=== PATIENT | female | born 1950 | race Caucasian/White ===

== ENCOUNTER 2019-08-31 11:43 | Outpatient (CLI) | payer MEDICARE, MEDICAID, SELFPAY ==
--- NOTE | 2019-08-31 12:45 | ECG_ITS ---
Measurements Intervals [place] Rate: 73 P: 20 ME: 166 QRS: 5 QRSD: 100 T: 114 QT: 408 QTc: 452 SINUS RHYTHM WITH SINUS ARRHYTHMIA LEFT VENTRICULAR HYPERTROPHY AND ST-T CHANGE [VOLTAGE CRITERIA PLUS ST/T ABN ABNORMALITY] POSSIBLE old ANTERIOR MYOCARDIAL INFARCTION [30 ms Q WAVE IN V3/V4, OR R < 0.2 mV IN No previous ECG available for comparison Electronically Signed On 08-31-2019 22:19:21 FUEL HANDLER by Abhi Hargrove M.D. [id number]
[2019-08-31 12:46] LABS: Basophils % 0.4 %; Eosinophils # 0.2 10^3/uL (0.0-0.8); Eosinophils % 7.3 %; Hematocrit 36.2 % (37.0-47.0); Hemoglobin 11.8 g/dL (11.5-15.3); Lymphocytes # 0.4 10^3/uL (0.8-4.8); Lymphocytes % 14.3 %; Mean Corpuscular HGB Conc 32.6 g/dL (30.0-36.0); Mean Corpuscular Volume 85.8 fL (81-99); Mean Platelet Volume 10.7 fL (7.4-10.4); Monocytes # 0.3 10^3/uL (0.2-0.9); Neutrophils # 1.8 10^3/uL (1.8-7.7); Neutrophils % 67.6 %; Nucleated Red Blood Cells % 0 %; Platelet Count 82 10^3/cmm (130-400); Red Blood Count 4.22 10^6/uL (4.1-5.3); White Blood Count 2.6 10^3/uL (4.0-10.0)
[2019-08-31 13:10] LABS: Anion Gap 14.6 (5-19); Blood Urea Nitrogen 6 mg/dL (8-23); Calcium 10.3 mg/dL (8.5-10.5); Carbon Dioxide 29 mmol/L (22-29); Chloride 95 mmol/L (98-107); Glucose 342 mg/dL (65-115); Osmolality Calculated 289 mOsm/kg (285-295); Potassium 3.6 mmol/L (3.5-5.1); Sodium 135 mmol/L (136-145)
== END 2019-08-31 11:44 | disposition home or self-care (01) ==
LOC: LAB 12:08
PROVIDERS: Family Provider Internal Medicine; PCP Internal Medicine; Visit Provider Specialist
DX: Z01.810 Encounter for preprocedural cardiovascular examination (principal)
CPT/HCPCS: 36415; 80048; 85025; 93005

== ENCOUNTER 2019-09-29 10:23 | Emergency (ER) | payer MEDICARE, MEDICAID, SELFPAY ==
[2019-09-29 10:24] VITALS: BMI 40.7
--- NOTE | 2019-09-29 10:28 | ED_ITS ---
Entered by Paulo Gray, acting as scribe for HPI - General Adult General: Chief complaint: Epistaxis Stated complaint: EPISTAXIS Time Seen by Provider: 09/29/19 10:26 History of Present Illness: HPI narrative: 69 yo female presents with nosecarole d. Pt states that the nose bleed started at 430 this morning, then stopped. Pt states that it started back up at 830am. Pt states that she has had some vein cauterized in her nose before. When pt arrived EMS did not have a nose clamp on pt. Pt was bleeding into an emesis bag. MD complaint: nose bleed Onset (ago): hour(s) Location: face (nose) Severity: moderate Relieving factors: none Exacerbating factors: none Associated symptoms: Deny chest pain, dyspnea, malaise, nausea, rash or vomiting Treatments prior to arrival: none Review of Systems Const: Denies: fever, chills, body aches, change in appetite, fatigue or malaise ENMT: Reports: nose bleeds Card: Denies: chest pain, edema, shortness of breath on exertion or shortness of breath when lying down Resp: Denies: shortness of breath, productive cough or non-productive cough GI: Denies: abdominal pain, nausea, vomiting, vomiting blood, coffee grounds in vomit, diarrhea, constipation, bloating, blood in stool or black tarry stool : Denies: flank pain, difficulty urinating, painful urination, urinary frequency or urinary urgency Skin/Breast: Denies: rash or itching PFS ED PFSH: Medical History (Updated 09/29/19 @ 13:36 by Sergio Hudson DO) Diabetes mellitus, type II Hemorrhage from nose Surgical History (Updated 09/29/19 @ 10:38 by Paulo Gray) H/O of nasal cauterization Social History Smoking and tobacco status: former smoker Physical Exam Const: COMMON NORMALS: no apparent distress GENERAL APPEARANCE: cooperative and comfortable ORIENTATION/CONSCIOUSNESS: Yes awake, Yes oriented to person, Yes oriented to place and Yes oriented to time HENMT: COMMON NORMALS: normocephalic, head/scalp atraumatic, hearing grossly normal bilaterally, external ears normal, EAC's normal, TM's normal bilaterally, moist oral mucous membranes and oropharynx normal HEAD & SCALP: normocephalic and atraumatic NOSE: epistaxis (severe) EXTERNAL EAR: Yes external ears normal EXTERNAL AUDITORY CANAL: EAC's normal TYMPANIC MEMBRANE: TM's normal bilaterally Eye: COMMON NORMALS: PERRL, EOMs intact bilaterally, conjunctivae normal and no scleral icterus CONJUNCTIVA: Yes conjunctivae normal PUPIL: Yes PERRL Neck/C-Spine: COMMON NORMALS: full ROM, no lymphadenopathy, supple and no JVD Lymph: LYMPHATIC: no lymphadenopathy noted and no lymphedema noted Resp: COMMON NORMALS: normal respiratory effort, no retractions, no use of accessory muscles and clear to auscultation bilaterally AUSCULTATION: clear to auscultation bilaterally Cardio: COMMON NORMALS: no JVD, regular rate, regular rhythm and no murmurs RATE: regular rate RHYTHM: regular rhythm GI: COMMON NORMALS: soft to palpation and no hepatosplenomegaly AUSCULTATION: Yes normoactive bowel sounds PALPATION: Yes soft, No tender, No guarding and Yes no hepatosplenomegaly Extremity: COMMON NORMALS: normal to inspection, normal capillary refill, no clubbing, cyanosis or edema, no calf tenderness and no pedal edema Neuro: SENSORIUM/ORIENTATION: Yes oriented to person, Yes oriented to place and Yes oriented to time Skin: COMMON NORMALS: no rashes or lesions noted GENERAL SKIN EXAM: no rashes or lesions noted Course ED course: Was able to get a hold of Dr. Slade who did the procedure on the [facility]. She recently had a sphenopalatine artery ligation. We placed nose packs was Rhino Rocket's bilaterally even after that patient bled another 4 to 500 mL. She was able to spit most of it out from her mouth. There was little bleeding from the nose around the packs eventually the bleeding did decrease. Discussed with Dr. Slade he recommends transfer to tertiary care center to be evaluated for possible embolization of vessels to the neck nasal cavity by interventional radiology. Discussed with the patient will transfer to [facility] as per Dr. Slade's recommendation. Vital Signs: Vital signs: Vital Signs Temperature 98.6 F 09/29/19 10:32 Pulse Rate 92 09/29/19 13:07 Respiratory Rate 20 H 09/29/19 13:07 Blood Pressure 98/48 09/29/19 13:07 Pulse Oximetry 98 09/29/19 13:07 [facility] - General Adult Lab Data: Labs: Lab Results 09/29/19 09/29/19 Range/Units 10:48 10:48 WBC 5.0 (4.0-10.0) 10^3/ uL RBC 3.54 L (4.1-5.3) 10^6/u L Hgb 9.8 L (11.5-15.3) g/dL Hct 30.8 L (37.0-47.0) % MCV 87.0 (81-99) fL MCH 27.7 L (28.0-34.0) pg MCHC 31.8 (30.0-36.0) g/dL RDW 15.5 H (12.1-15.1) % Plt Count 124 L (130-400) 10^3/c mm MPV 11.8 H (7.4-10.4) fL Neut % (Auto) 74.0 % Lymph % (Auto) 11.3 % [place] % (Auto) 10.1 % Eos % (Auto) 3.8 % Baso % (Auto) 0.6 % Neut # (Auto) 3.7 (1.8-7.7) 10^3/u L Lymph # (Auto) 0.6 L (0.8-4.8) 10^3/u L [place] # (Auto) 0.5 (0.2-0.9) 10^3/u L Eos # (Auto) 0.2 (0.0-0.8) 10^3/u L Baso # (Auto) 0.0 (0.0-0.1) 10^3/u L Nucleated RBC % (a uto) 0 % Nucleated RBCs # 0.0 /100WBC PT 15.00 H (10.5-13.3) SECO NDS INR 1.14 (0.8-1.2) APTT 33.5 (23.9-36.7) SECO NDS Discharge Plan Discharge Patient Disposition: Transfer to ED Clinical Impression: Epistaxis, Acute blood loss anemia Prescriptions: No Action Lantus U-100 Insulin 100 unit/mL Solution See Rx Instructions .ROUTE .COMPLEX RF: 0 aspirin 325 mg Tablet 325 mg PO DAILY RF: 0 simvastatin 10 mg Tablet 10 mg PO DAILY RF: 0 gabapentin 800 mg Tablet 800 mg PO TID RF: 0 ropinirole 0.25 mg Tablet 0.25 mg PO TID RF: 0 Kristalose 10 gram Packet See Rx Instructions .ROUTE .COMPLEX RF: 0 levothyroxine 125 mcg Tablet 125 mcg PO DAILY RF: 0 furosemide 20 mg Tablet 20 mg PO DAILY RF: 0 Vitamin B-6 100 mg Tablet 50 mg PO DAILY RF: 0 Humalog U-100 Insulin 100 unit/mL Solution See Rx Instructions .ROUTE .COMPLEX RF: 0 Multiple Vitamin, Womens Tablet See Rx Instructions .ROUTE .COMPLEX RF: 0 Restasis 0.05 % Dropperette 0.05 % ophthalmic (eye) BID RF: 0 memantine 10 mg Tablet 10 mg PO BID RF: 0 metformin 1,000 mg Tablet Extended Release 24hr 1,000 mg PO DAILY RF: 0 Vitamin D3 25 mcg (1,000 unit) Tablet 25 mcg PO DAILY RF: 0 Fish Oil 300-1,000 mg Capsule 1 cap PO TID RF: 0 alpha lipoic acid 200 mg Tablet 200 mg PO DAILY RF: 0 Xifaxan 550 mg Tablet 550 mg PO BID RF: 0 rivastigmine 13.3 mg/24 hour Patch 24 Hour 1 patch TRANSDERMAL DAILY RF: 0 Probiotic Complex 25 billion cell -100 mg Capsule See Rx Instructions .ROUTE .COMPLEX RF: 0 Trulicity 1.5 mg/0.5 mL Pen Injector See Rx Instructions .ROUTE .COMPLEX RF: 0 duloxetine 30 mg Capsule, Delayed Rel Sprinkle 30 mg PO BID RF: 0 Referrals: Jolie Peck [Primary Care Provider] - Interventions: ED Discharge Assessment Last Done: 09/29/19 13:07 Discharge Date/Time: 09/29/19 13:08 Coding Level of Care Code ED Orthotic Practitioner for Chg Fwd Exam Comprehensive The documentation recorded by the Isaac connelly Kialy, accurately reflects the service I personally performed and the decisions made by Becca quintero Curtis L, DO Sep 29, 2019 10:23
[2019-09-29 10:32] VITALS: BP 126/56; PULSE 93; RESP 22; TEMP 37; O2SAT 94
[2019-09-29] MEDS: LORazepam 2 mg/mL INJ 1 mL 1 MG IVP ×2 (10:50→11:52)
[2019-09-29] MEDS: oxymetazoline 0.05% Nasal Spray 15 mL 2 SPRAY NOSTRIL-B (10:52)
[2019-09-29 10:57] LABS: Basophils % 0.6 %; Eosinophils # 0.2 10^3/uL (0.0-0.8); Eosinophils % 3.8 %; Hematocrit 30.8 % (37.0-47.0); Hemoglobin 9.8 g/dL (11.5-15.3); Lymphocytes # 0.6 10^3/uL (0.8-4.8); Lymphocytes % 11.3 %; Mean Corpuscular HGB Conc 31.8 g/dL (30.0-36.0); Mean Corpuscular Hemoglobin 27.7 pg (28.0-34.0); Mean Platelet Volume 11.8 fL (7.4-10.4); Monocytes # 0.5 10^3/uL (0.2-0.9); Monocytes % 10.1 %; Neutrophils # 3.7 10^3/uL (1.8-7.7); Nucleated Red Blood Cells % 0 %; Platelet Count 124 10^3/cmm (130-400); Red Blood Count 3.54 10^6/uL (4.1-5.3); Red Cell Distribution Width 15.5 % (12.1-15.1)
[2019-09-29 11:02] LABS: INR 1.14 (0.8-1.2)
[2019-09-29 11:03] LABS: Partial Thromboplastin Time 33.5 SECONDS (23.9-36.7)
[2019-09-29] MEDS: ondansetron 2 mg/ML SDV 2 mL 4 MG IVP (11:52)
[2019-09-29] MEDS: fentaNYL 50 mcg/mL INJ 2mL IVP (11:52)
[2019-09-29 13:07] VITALS: BP 98/48; PULSE 92; RESP 20; O2SAT 98
== END 2019-09-29 13:08 ==
LOC: ER 10:34
PROVIDERS: Emergency Provider Family Medicine; Family Provider Internal Medicine; PCP Internal Medicine
DX: R04.0 Epistaxis (principal); D62 Acute posthemorrhagic anemia; E11.9 Type 2 diabetes mellitus without complications; Z87.891 Personal history of nicotine dependence
CPT/HCPCS: 12345; 30903; 36415; 85025; 85610; 85730; 96374; 96375; 96376; 99281; 99285; J2060; J2405; J3010

== ENCOUNTER 2019-11-06 17:31 | Inpatient (IN) | payer MEDICARE, MEDICAID, SELFPAY ==
[2019-11-06] VITALS (9 sets, daily range): BP systolic 105–156; BP diastolic 47–73; PULSE 68–74; RESP 18–24; TEMP 36.3–36.7; O2SAT 95–100; BMI 40.7
--- NOTE | 2019-11-06 17:38 | XR_ITS ---
WS: [id number] PORTABLE CHEST HISTORY: cough COMPARISON: 10/01/2015 Markedly coarsened interstitial marking with opacifications throughout both lungs. New since the prio r study. Marked pulmonary venous congestion. Small bilateral pleural effusions are likely. Cardiac size: Moderately enlarged cardiac silhouette. Heart size has increased since the prior study. Mediastinum/Aorta: Mild widening of the mediastinum is also more prominent. No osseous abnormality seen. XR/XR chest 1V portable [id number] IMPRESSION: Interval development of moderate to severe CHF with increasing cardiac size.
--- NOTE | 2019-11-06 18:14 | PC.NURSE ---
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
[2019-11-06 18:18] LABS: Basophils % 0.6 %; Eosinophils # 0.1 10^3/uL (0.0-0.8); Eosinophils % 4.5 %; Hemoglobin 7.5 g/dL (11.5-15.3); Lymphocytes # 0.4 10^3/uL (0.8-4.8); Mean Corpuscular HGB Conc 28.8 g/dL (30.0-36.0); Mean Corpuscular Hemoglobin 25.6 pg (28.0-34.0); Mean Corpuscular Volume 88.7 fL (81-99); Mean Platelet Volume 10.9 fL (7.4-10.4); Monocytes # 0.3 10^3/uL (0.2-0.9); Monocytes % 10.7 %; Neutrophils # 2.2 10^3/uL (1.8-7.7); Neutrophils % 71.9 %; Nucleated Red Blood Cells % 0 %; Platelet Count 78 10^3/cmm (130-400); Red Blood Count 2.93 10^6/uL (4.1-5.3); Red Cell Distribution Width 18.1 % (12.1-15.1); White Blood Count 3.1 10^3/uL (4.0-10.0)
[2019-11-06 18:38] LABS: Troponin(5th) Baseline 32 ng/mL (0-10)
[2019-11-06] MEDS: sodium chloride 0.9% 1,000 ML 100 ML IV (18:38)
[2019-11-06 18:41] LABS: INR 1.06 (0.8-1.2)
[2019-11-06 18:46] LABS: Alanine Aminotransferase 17 U/L (0-33); Albumin Level 3.4 g/dL (3.5-5.2); Alkaline Phosphatase 79 IU/L (35-105); Anion Gap 14.6 (5-19); Aspartate Amino Transferase 41 U/L (0-32); Blood Urea Nitrogen 11 mg/dL (8-23); Calcium 9.5 mg/dL (8.5-10.5); Carbon Dioxide 28 mmol/L (22-29); Chloride 98 mmol/L (98-107); Globulin 3.5 g/dL (1.3-4.6); Glucose 178 mg/dL (65-115); Lipase 82 U/L (13-60); Magnesium 2.1 mg/dL (1.7-2.3); NT Pro B Type Natriuretic Pept 351 pg/mL (0-125); Osmolality Calculated 284 mOsm/kg (285-295); Potassium 3.6 mmol/L (3.5-5.1); Sodium 137 mmol/L (136-145); Total Bilirubin 1.3 mg/dL (0.15-1.2); Total Protein 6.9 g/dL (6.6-8.7)
--- NOTE | 2019-11-06 18:52 | ED_ITS ---
HPI - Chest Pain General: Chief Complaint: Chest Pain Stated Complaint: CHEST PAIN Time Seen by Provider: 11/06/19 17:37 History of Present Illness: HPI narrative: Ms. Ayala is a nice 69-year-old female who comes in complaining of a prickly chest pain for the past 1 week. The symptoms are intermittent in nature lasting as little as 3 minutes but lasting up to 2 hours. She has associated shortness of breath made worse with exertion. She has questionable diaphoresis. She says she has had increased leg swelling. She denies any other exacerbating or alleviating factors or inciting symptoms. Patient received aspirin and 3 sublingual nitro's by EMS in route and had resolution of her symptoms. The patient is a poor historian further information is taken from old charts and medication lists and family. Review of Systems General: Reports: other (Review of systems are believed to be negative other than as noted in HPI as patient is a poor historian.) [facility] ED PFSH: Medical History (Updated 11/06/19 @ 19:11 by Jessica Velez) Anemia Cirrhosis Dementia Diabetes mellitus, type II Hemorrhage from nose Valvular heart disease Surgical History (Updated 09/29/19 @ 10:38 by Paulo Gray) H/O of nasal cauterization Family History (Updated 11/06/19 @ 21:14 by Bradly Howard MD) Other Diabetes Social History Smoking and tobacco status: former smoker Physical Exam Const: COMMON NORMALS: no apparent distress, oriented x3, no limitations, healthy appearing and well nourished EXAM LIMITATIONS: no altered mental status GENERAL APPEARANCE: cooperative, well kempt and well developed ORIENTATION/CONSCIOUSNESS: Yes awake HENMT: COMMON NORMALS: normocephalic, head/scalp atraumatic, hearing grossly normal bilaterally, external ears normal, EAC's normal, external nose normal and moist oral mucous membranes HEAD & SCALP: normal to inspection, normocephalic and atraumatic FACE & SINUS: normal facial exam and face symmetric NOSE: external nose normal and nares normal EXTERNAL EAR: Yes external ears normal EXTERNAL AUDITORY CANAL: EAC's normal MOUTH: oral and palatal mucosa normal and tongue normal Eye: COMMON NORMALS: PERRL, EOMs intact bilaterally, conjunctivae normal and no scleral icterus GENERAL EYE: normal appearance of both eyes and normal light reflex CONJUNCTIVA: Yes conjunctivae normal SCLERA: sclerae normal CORNEA: Yes corneas normal PUPIL: Yes PERRL DIRECT OPHTHALMOSCOPY: Yes normal light reflex Neck/C-Spine: COMMON NORMALS: full ROM, no lymphadenopathy, supple, no meningeal signs and no JVD GENERAL: Yes normal visual inspection and Yes trachea midline CERVICAL SPINE: Yes cervical ROM normal Chest: COMMONS NORMALS: inspection of chest normal and palpation of chest normal Resp: COMMON NORMALS: normal respiratory effort, no retractions, no use of accessory muscles and clear to auscultation bilaterally EFFORT & INSPECTION: Yes able to speak in complete sentences AUSCULTATION: clear to auscultation bilaterally Cardio: COMMON NORMALS: no JVD, regular rate, regular rhythm, S1 normal heart sound, S2 normal heart sound, no gallops, no clicks and no rub JUGULAR VENOUS DISTENTION: no JVD RATE: regular rate RHYTHM: regular rhythm HEART SOUNDS: S1 normal, S2 normal and murmur systolic GI: COMMON NORMALS: soft to palpation, non-tender, no hepatosplenomegaly and no masses INSPECTION: Yes normal to inspection PALPATION: Yes soft and Yes no hepatosplenomegaly RECTAL EXAM: normal sphincter tone, No heme positive stool and hemorrhoids : COMMON NORMALS: Yes no CVA tenderness BLADDER/KIDNEY EXAM: Yes no CVA tenderness Back/Pelvis: COMMON NORMALS: no CVA tenderness, thoracic and lumbar spine normal to inspection, no thoracic nor lumbar tenderness and thoraco-lumbar ROM normal Extremity: COMMON NORMALS: normal to inspection, full ROM, normal capillary refill, no joint enlargement, no clubbing, cyanosis or edema and no calf tenderness Neuro: COMMON NORMALS: oriented x3, CN's II-XII intact bilaterally, moves all extremities, no focal motor deficits and no sensory deficits noted MENINGEAL SIGNS: Yes no meningeal signs Psych: COMMON NORMALS: mental status grossly normal, thought process normal, cooperative, affect normal, speech normal and activity/motor behavior normal APPEARANCE: Yes well kempt SPEECH: Yes normal speech THOUGHT PROCESS: normal thought process Skin: COMMON NORMALS: no rashes or lesions noted, skin turgor normal, no jaundice, no petechiae and no mottling GENERAL SKIN EXAM: no rashes or lesions noted and turgor normal Course Vital Signs: Vital signs: Vital Signs Temperature 98.1 F 11/06/19 17:39 Pulse Rate 71 11/06/19 21:10 Respiratory Rate 20 H 11/06/19 21:10 Blood Pressure 136/58 11/06/19 21:10 Pulse Oximetry 100 11/06/19 21:10 MDM - Chest Pain MDM Narrative: Medical decision making narrative: Mrs. Thomson is a nice 68- year 1-year-old female who comes in with a confusing past medical history. All records have been ordered to be reviewed from [facility] for hopes of a more complete past medical history. Patient comes in with chest pain that does not sound cardiac in nature. She describes it as prickly . Patient does have shortness of breath with exertion though which is a concerning finding for possible anginal equivalent. Patient has evidence of pulmonary vascular congestion on chest x-ray but no history of congestive heart failure. She states that she does wear nasal cannula oxygen but she is not for certain what for. Patient does have a history of valvular heart disease with a loud murmur but she states this is been present for quite some time. Her EKG has some abnormalities and her troponin is slightly elevated and we have nothing old for comparison. The patient has no active chest pain at this time. Patient is anemic which is a acutely worsening problem. I believe that she will need at least 1 unit of blood. Due to her confusing picture I believe she should be admitted for transfusion and further cardiac evaluation care. The case was endorsed to Dr. Raines who is agreeable to do so. Lab Data: Attestation: I reviewed the patient's lab results. Labs: Lab Results 11/06/19 11/06/19 11/06/19 Range/Units 18:00 18:00 18:00 WBC 3.1 L (4.0-10.0) 10^3/ uL RBC 2.93 L (4.1-5.3) 10^6/u L Hgb 7.5 L (11.5-15.3) g/dL Hct 26.0 L (37.0-47.0) % MCV 88.7 (81-99) fL MCH 25.6 L (28.0-34.0) pg MCHC 28.8 L (30.0-36.0) g/dL RDW 18.1 H (12.1-15.1) % Plt Count 78 L (130-400) 10^3/c mm MPV 10.9 H (7.4-10.4) fL Neut % (Auto) 71.9 % Lymph % (Auto) 12.0 % [place] % (Auto) 10.7 % Eos % (Auto) 4.5 % Baso % (Auto) 0.6 % Reticulocyte % (Au to) % Neut # (Auto) 2.2 (1.8-7.7) 10^3/u L Lymph # (Auto) 0.4 L (0.8-4.8) 10^3/u L [place] # (Auto) 0.3 (0.2-0.9) 10^3/u L Eos # (Auto) 0.1 (0.0-0.8) 10^3/u L Baso # (Auto) 0.0 (0.0-0.1) 10^3/u L Nucleated RBC % (a uto) 0 % Nucleated RBCs # 0.0 /100WBC PT 13.90 H (10.5-13.3) SECO NDS INR 1.06 (0.8-1.2) Sodium 137 (136-145) mmol/L Potassium 3.6 (3.5-5.1) mmol/L Chloride 98 (98-107) mmol/L Carbon Dioxide 28 (22-29) mmol/L Anion Gap 14.6 (5-19) BUN 11 (8-23) mg/dL Creatinine 0.7 (0.5-0.9) mg/dL Glucose 178 H (65-115) mg/dL Calculated Osmolal ity 284 L (285-295) mOsm/k g Calcium 9.5 (8.5-10.5) mg/dL Magnesium 2.1 (1.7-2.3) mg/dL Iron (37-145) ug/dL TIBC mcg/dl % Saturation (20-50) % Unsat Iron Binding (112-347) ug/dL Ferritin (15-150) ng/mL Total Bilirubin 1.3 H (0.15-1.2) mg/dL AST 41 H (0-32) U/L ALT 17 (0-33) U/L Alkaline Phosphata se 79 (35-105) IU/L Ammonia (11-51) umol/L Troponin T Baselin e (0-10) ng/mL Troponin T 120 Min [place] (0-10) ng/mL C-Reactive Protein (0.0-4.9) mg/L NT-Pro-B Natriuret Pep 351 H (0-125) pg/mL Total Protein 6.9 (6.6-8.7) g/dL Albumin 3.4 L (3.5-5.2) g/dL Globulin 3.5 (1.3-4.6) g/dL Lipase 82 H (13-60) U/L Procalcitonin (0-0.5) ng/mL Blood Type Rho(D) Type Antibody Screen Crossmatch 11/06/19 11/06/19 11/06/19 Range/Units 18:00 18:00 18:00 WBC (4.0-10.0) 10^3/ uL RBC (4.1-5.3) 10^6/u L Hgb (11.5-15.3) g/dL Hct (37.0-47.0) % MCV (81-99) fL MCH (28.0-34.0) pg MCHC (30.0-36.0) g/dL RDW (12.1-15.1) % Plt Count (130-400) 10^3/c mm MPV (7.4-10.4) fL Neut % (Auto) % Lymph % (Auto) % [place] % (Auto) % Eos % (Auto) % Baso % (Auto) % Reticulocyte % (Au to) 5.0000 % Neut # (Auto) (1.8-7.7) 10^3/u L Lymph # (Auto) (0.8-4.8) 10^3/u L [place] # (Auto) (0.2-0.9) 10^3/u L Eos # (Auto) (0.0-0.8) 10^3/u L Baso # (Auto) (0.0-0.1) 10^3/u L Nucleated RBC % (a uto) % Nucleated RBCs # /100WBC PT (10.5-13.3) SECO NDS INR (0.8-1.2) Sodium (136-145) mmol/L Potassium (3.5-5.1) mmol/L Chloride (98-107) mmol/L Carbon Dioxide (22-29) mmol/L Anion Gap (5-19) BUN (8-23) mg/dL Creatinine (0.5-0.9) mg/dL Glucose (65-115) mg/dL Calculated Osmolal ity (285-295) mOsm/k g Calcium (8.5-10.5) mg/dL Magnesium (1.7-2.3) mg/dL Iron 58 (37-145) ug/dL TIBC 341 mcg/dl % Saturation 17.0 L (20-50) % Unsat Iron Binding 283 (112-347) ug/dL Ferritin 34 (15-150) ng/mL Total Bilirubin (0.15-1.2) mg/dL AST (0-32) U/L ALT (0-33) U/L Alkaline Phosphata se (35-105) IU/L Ammonia (11-51) umol/L Troponin T Baselin e 32 H (0-10) ng/mL Troponin T 120 Min [place] (0-10) ng/mL C-Reactive Protein 21.4 H (0.0-4.9) mg/L NT-Pro-B Natriuret Pep (0-125) pg/mL Total Protein (6.6-8.7) g/dL Albumin (3.5-5.2) g/dL Globulin (1.3-4.6) g/dL Lipase (13-60) U/L Procalcitonin 0.11 (0-0.5) ng/mL Blood Type Rho(D) Type Antibody Screen Crossmatch 11/06/19 11/06/19 11/06/19 Range/Units 19:40 19:40 20:15 WBC (4.0-10.0) 10^3/ uL RBC (4.1-5.3) 10^6/u L Hgb (11.5-15.3) g/dL Hct (37.0-47.0) % MCV (81-99) fL MCH (28.0-34.0) pg MCHC (30.0-36.0) g/dL RDW (12.1-15.1) % Plt Count (130-400) 10^3/c mm MPV (7.4-10.4) fL Neut % (Auto) % Lymph % (Auto) % Alcorn % (Auto) % Eos % (Auto) % Baso % (Auto) % Reticulocyte % (Au to) % Neut # (Auto) (1.8-7.7) 10^3/u L Lymph # (Auto) (0.8-4.8) 10^3/u L [place] # (Auto) (0.2-0.9) 10^3/u L Eos # (Auto) (0.0-0.8) 10^3/u L Baso # (Auto) (0.0-0.1) 10^3/u L Nucleated RBC % (a uto) % Nucleated RBCs # /100WBC PT (10.5-13.3) SECO NDS INR (0.8-1.2) Sodium (136-145) mmol/L Potassium (3.5-5.1) mmol/L Chloride (98-107) mmol/L Carbon Dioxide (22-29) mmol/L Anion Gap (5-19) BUN (8-23) mg/dL Creatinine (0.5-0.9) mg/dL Glucose (65-115) mg/dL Calculated Osmolal ity (285-295) mOsm/k g Calcium (8.5-10.5) mg/dL Magnesium (1.7-2.3) mg/dL Iron (37-145) ug/dL TIBC mcg/dl % Saturation (20-50) % Unsat Iron Binding (112-347) ug/dL Ferritin (15-150) ng/mL Total Bilirubin (0.15-1.2) mg/dL AST (0-32) U/L ALT (0-33) U/L Alkaline Phosphata se (35-105) IU/L Ammonia 52 H (11-51) umol/L Troponin T Baselin e (0-10) ng/mL Troponin T 120 Min [place] 32.54 H (0-10) ng/mL C-Reactive Protein (0.0-4.9) mg/L NT-Pro-B Natriuret Pep (0-125) pg/mL Total Protein (6.6-8.7) g/dL Albumin (3.5-5.2) g/dL Globulin (1.3-4.6) g/dL Lipase (13-60) U/L Procalcitonin (0-0.5) ng/mL Blood Type AB Negative Rho(D) Type Negaive Antibody Screen Negative Crossmatch See Detail Imaging Data^: CXR: My impression: Mild to moderate pulmonary vascular congestion EKG Data^: EKG 1: Attestation: I personally reviewed and interpreted this EKG as follows: EKG interpretation date: 11/06/19 EKG interpretation time: 17:50 Interpretation: Normal sinus rhythm at 69 beats a minute, T wave inversions in lateral leads, normal intervals, no blocks. Discharge Plan Discharge Patient Disposition: Placed in Observation Clinical Impression: Chest pain, Anemia, Valvular heart disease, Acute CHF (congestive heart failure) Condition: Stable Prescriptions: No Action Lantus U-100 Insulin 100 unit/mL Solution See Rx Instructions .ROUTE .COMPLEX RF: 0 aspirin 325 mg Tablet 325 mg PO DAILY RF: 0 simvastatin 10 mg Tablet 10 mg PO DAILY RF: 0 gabapentin 800 mg Tablet 800 mg PO TID RF: 0 ropinirole 0.25 mg Tablet 0.25 mg PO TID RF: 0 Kristalose 10 gram Packet See Rx Instructions .ROUTE .COMPLEX RF: 0 levothyroxine 125 mcg Tablet 125 mcg PO DAILY RF: 0 furosemide 20 mg Tablet 20 mg PO DAILY RF: 0 Vitamin B-6 100 mg Tablet 50 mg PO DAILY RF: 0 Humalog U-100 Insulin 100 unit/mL Solution See Rx Instructions .ROUTE .COMPLEX RF: 0 Multiple Vitamin, Womens Tablet See Rx Instructions .ROUTE .COMPLEX RF: 0 Restasis 0.05 % Dropperette 0.05 % ophthalmic (eye) BID RF: 0 memantine 10 mg Tablet 10 mg PO BID RF: 0 metformin 1,000 mg Tablet Extended Release 24hr 1,000 mg PO DAILY RF: 0 Vitamin D3 25 mcg (1,000 unit) Tablet 25 mcg PO DAILY RF: 0 Fish Oil 300-1,000 mg Capsule 1 cap PO TID RF: 0 alpha lipoic acid 200 mg Tablet 200 mg PO DAILY RF: 0 Xifaxan 550 mg Tablet 550 mg PO BID RF: 0 rivastigmine 13.3 mg/24 hour Patch 24 Hour 1 patch TRANSDERMAL DAILY RF: 0 Probiotic Complex 25 billion cell -100 mg Capsule See Rx Instructions .ROUTE .COMPLEX RF: 0 Trulicity 1.5 mg/0.5 mL Pen Injector See Rx Instructions .ROUTE .COMPLEX RF: 0 duloxetine 30 mg Capsule, Delayed Rel Sprinkle 30 mg PO BID RF: 0 Referrals: Jolie Peck [Primary Care Provider] - Coding Level of Care Code ED Roll On Man for Chg Fwd Exam Comprehensive
--- NOTE | 2019-11-06 19:39 | ECG_ITS ---
Measurements Intervals [place] Rate: 66 P: 68 IA: 155 QRS: 18 QRSD: 100 T: 135 QT: 429 QTc: 451 SINUS RHYTHM POSSIBLE LEFT ATRIAL ENLARGEMENT [-0.1mV P WAVE IN V1/V2] ST DEVIATION AND MODERATE T-WAVE ABNORMALITY, CONSIDER LATERAL ISCHEMIA [-0.1+ mV T WAVE IN I/aVL/V5/V6] Compared to ECG 11/06/2019 17:50:07 No significant changes Electronically Signed On 11-07-2019 19:08:14 CDT by Abhi Hargrove M.D. [email or web address]
[2019-11-06 19:58] LABS: Troponin 5 2HR 32.54 ng/mL (0-10); Troponin 5 2HR Delta 0.54 ABS# (0-10)
[2019-11-06 20:33] LABS: Procalcitonin 0.11 ng/mL (0-0.5)
--- NOTE | 2019-11-06 20:40 | CTR_ITS ---
PROCEDURE INFORMATION: Exam: CT Angiography Chest With Contrast Exam date and time: 11/06/2019 8:43 PM Age: 69 years old Clinical indication: Shortness of breath; Additional info: SOB TECHNIQUE: Imaging protocol: Computed tomographic angiography of the chest with intravenous contrast. 3D rendering: MIP and/or 3D reconstructed images were created by the technologist. Total DLP: 648.41 mGy-cm Radiation optimization: All CT scans at this facility use at least one of these dose optimization techniques: automated exposure control; mA and/or kV adjustment per patient size (includes targeted exams where dose is matched to clinical indication); or iterative reconstruction. Contrast material: OMNI 350; Contrast volume: 95 ml; Contrast route: 20G; COMPARISON: CR XR chest 1V portable [id number] 11/06/2019 5:43 PM FINDINGS: Pulmonary arteries: Normal. No pulmonary emboli. Aorta: Aortic calcifications are noted. No findings of aortic aneurysm or acute aortic abnormality. Lungs: Pulmonary interstitial thickening relating to edema or congestion. Mild atelectasis also noted.Calcified pulmonary granulomatous change noted. Pleural space: Small bilateral pleural effusions. Heart: Mild cardiomegaly.Coronary calcifications are noted. Liver: Probable cirrhosis with associated splenomegaly. Lymph nodes: Mild prominence of mediastinal lymph nodes. Bones/joints: Nonspecific low-density finding at lower T12 vertebral body will be correlated to MRI from [address] from 2017 when available. Soft tissues: Unremarkable. CT/CT angio chest PE protcl [id number] IMPRESSION: Congestive heart failure. No findings of pulmonary embolus. Nonspecific low-density finding at lower T12 vertebral body will be correlated to MRI from [address] from 2017 when available. Probable cirrhosis with associated splenomegaly. Radiation Dose CTDIVOL = (mGy): DLP = 648.41 (mGy-cm)
[2019-11-06 20:42] LABS: Ammonia 52 umol/L (11-51)
[2019-11-06 20:44] LABS: C Reactive Protein 21.4 mg/L (0.0-4.9); Ferritin 34 ng/mL (15-150); Iron 58 ug/dL (37-145); Total Iron Binding Capacity 341 mcg/dl; Unsaturated Iron Binding 283 ug/dL (112-347)
--- NOTE | 2019-11-06 21:07 | PM.HP ---
Providers/Chief Complaint Primary Care Provider: Jolie Peck Chief Complaint: CHEST PAIN History of Present Illness Ascencion Thomson is a 69 year old female with a past medical history of nonalcoholic fatty liver disease, hepatic encephalopathy on Xifaxan and lactulose, ascites, insulin-dependent type 2 diabetes mellitus, hyperlipidemia, restless leg syndrome, hypothyroidism, history of COPD on BiPAP at home, intermittent oxygen use, but recently been using oxygen chronically, greater than [id number] history of smoking, diabetic peripheral neuropathy, history of pancytopenia, moderate aortic stenosis, grade 3 out of 4 heart failure with preserved ejection fraction, moderate LVH, who presents to the emergency room due to complaints of shortness of breath and chest pain. Patient states that for the past week she has been having substernal chest pain, states that the substernal chest pain is a tingling in her chest sometimes a fluttering of her chest, sharp pain, at times it is in the left upper quadrant of her breast, at one other time it was associated with left arm heaviness and pressure, does not radiate to the neck, does not radiate to the back, lasts a few minutes, sometimes last a few hours, patient states her symptoms have been going on for the week, symptoms have becoming more frequent, more severe, associate with shortness of breath, no lightheadedness, no dizziness, no history of CAD, no history of CABG, no history of cath, did have a negative stress test in 2009, no family history of CAD Patient does report shortness of breath, on a good day she is short of breath less than 10 feet, recently she is been short of breath with a few steps, shortness of breath, orthopnea, paroxysmal nocturnal dyspnea, no cough, no fevers, no chills, recent travel, no recent sick contacts, no known exposure to COVID19, patient states that she sees a chemist inorganic in [place], she is not sure if she has been diagnosed with COPD, but has greater than [id number] history of smoking, does use BiPAP during the night, patient states that she uses intermittent oxygen throughout the day as needed, but recently on her own because she was not feeling well she started using oxygen up to 2 L, states that as soon as she started using oxygen she started feeling much better No abdominal pain, no abdominal distention, no fevers, no jaundice, no episodes of confusion, no falls Patient states that she lives with her , they moved to [place] more than 20 years ago, she is originally from [place], he is from [place], Review of Systems Const: Denies: fever, chills, fatigue or malaise Eyes: Denies: change in vision or blurry vision ENMT: Denies: nasal congestion Card: Reports: chest pain Resp: Reports: shortness of breath; Denies: productive cough, non-productive cough or wheezing GI: Denies: abdominal pain, nausea, vomiting, vomiting blood, diarrhea, constipation, blood in stool or black tarry stool : Denies: flank pain, painful urination or urinary frequency Musc: Denies: neck pain or back pain Skin/Breast: Denies: rash Neuro: Denies: headache, dizziness or vertigo Psych: Denies: anxiety or depression Endo: Denies: excessive urination or excessive thirst Medications/Allergies Allergies Allergy/AdvReac Type Severity Reaction Status Date / Time Iodinated Contrast Media Allergy ALGY-Rash Verified 09/29/19 10:31 Latex, Natural Rubber Allergy ALGY-Rash Verified 09/29/19 10:30 Penicillins Allergy ALGY-Rash Verified 09/29/19 10:30 Sulfa (Sulfonamide Allergy ALGY-Rash Verified 09/29/19 10:30 Antibiotics) Additional Medication Information Additional Medication Information: Lactulose 30 g powder 3 times daily Ibuprofen 200 mg 1-2 tabs every 6 hours as needed Hydroxyzine 25 mg 1 tab 3 times daily as needed Humalog 46 units 3 times daily Gabapentin 800 mg 1 tab 3 times daily Lasix 20 mg once daily Flexeril 5 mg orally 3 times daily Fish oil Duloxetine 30 mg 2 times a day Aspirin 81 mg once daily Xifaxan 550 mg 1 tablet 2 times daily Trulicity's 0.75 subcutaneously once a week simvastatin 10 mg 1 tablet daily ropinirole 0.25 mg 1 tablet 3 times Rivastigmine 13.3/24hr one patch daily Multivitamin Metformin thousand milligrams once a day memantine 10 mg 1 tab 2 times daily levothyroxine 125 mcg once daily Lantus 62 units twice daily 13.3 mg per 24-hour patch once daily PFSH Acute PFSH: Medical History (Updated 11/06/19 @ 21:18 by Bradly Howard MD) Anemia Cirrhosis Dementia Diabetes mellitus, type II Hemorrhage from nose Valvular heart disease Surgical History (Updated 09/29/19 @ 10:38 by Paulo Gray) H/O of nasal cauterization Family History (Updated 11/06/19 @ 21:14 by Bradly Howard MD) Other Diabetes Social History Smoking and tobacco status: former smoker Vitals/I&O/Wt Last Vital Signs Temp 98.1 F 11/06/19 17:39 Pulse 70 11/06/19 17:39 Resp 20 H 11/06/19 17:39 BP 135/50 11/06/19 17:39 Pulse Ox 95 11/06/19 17:39 Weight last 48 hrs Weight 117.934 kg Physical Exam Const: COMMON NORMALS: no apparent distress and oriented x3 GENERAL APPEARANCE: cooperative and comfortable HENMT: COMMON NORMALS: normocephalic HEAD & SCALP: normocephalic Eye: COMMON NORMALS: PERRL and EOMs intact bilaterally GENERAL EYE: normal appearance of both eyes PUPIL: Yes PERRL DIRECT OPHTHALMOSCOPY: Yes no papilledema Neck/C-Spine: COMMON NORMALS: full ROM, no lymphadenopathy, no JVD and thyroid normal THYROID: thyroid normal Lymph: LYMPHATIC: no lymphadenopathy noted Resp: COMMON NORMALS: normal respiratory effort, no retractions, no use of accessory muscles and clear to auscultation bilaterally AUSCULTATION: clear to auscultation bilaterally Cardio: COMMON NORMALS: no JVD, regular rate, regular rhythm, S1 normal heart sound, S2 normal heart sound, no gallops, no clicks and no murmurs RATE: regular rate RHYTHM: regular rhythm HEART SOUNDS: S1 normal and S2 normal GI: COMMON NORMALS: normal to inspection, nondistended, normoactive bowel sounds, soft to palpation, non-tender and no hepatosplenomegaly PALPATION: Yes soft and Yes no hepatosplenomegaly Extremity: COMMON NORMALS: normal to inspection, full ROM and no pedal edema Neuro: COMMON NORMALS: oriented x3, CN's II-XII intact bilaterally, moves all extremities and no focal motor deficits Psych: COMMON NORMALS: mental status grossly normal, thought process normal and cooperative THOUGHT PROCESS: normal thought process Data : 11/06/19 18:00 11/06/19 18:00 A&P Assessment and plan (1) Acute respiratory failure with hypoxia: -Secondary to heart failure exacerbation,, possible pneumonia as I cannot see the right heart border, pro-Chilo 0.11, white blood cell count 3.1, is immunocompromise with liver disease -I do not think that she has a COPD exacerbation, no wheezing on exam -Is using 2 L oxygen throughout the day, used to be using it intermittently Plan: -Strict I's and O's, fluid restrictions to 1500 cc, Lasix 40 mg IV twice daily, order cardiac echocardiogram -We will order CT angiogram of the chest to rule out pulmonary embolism -Preemptively we will start her on Levaquin for pneumonia, follow-up CT angiogram results -Blood cultures, respiratory cultures, urine cultures Status: Acute (2) Chest pain: -Chest pain symptoms that sound cardiac in nature are the left arm heaviness, the substernal pain -EKG shows T wave inversions in lateral leads -Baseline troponin 32, 120-minute 32.4 -No family history of CAD -Uses baby aspirin and statin at home -Had a negative cardiac stress test in 2009 -Echocardiogram in 2019 showed ejection fraction of 65%, moderate LVH, grade 3 out of 4 diastolic dysfunction, moderate aortic stenosis, part of pulmonary arterial pressure 53 Plan: -We will order cardiac stress test tomorrow morning, n.p.o. midnight -Trend troponins, trend EKGs -Aspirin, statin -Monitor for chest pain, telemetry monitoring Status: Acute (3) Heart failure with preserved ejection fraction: Status: Acute (4) Aortic stenosis: Status: Acute (5) COPD (chronic obstructive pulmonary disease): Status: Acute (6) Moderate aortic stenosis: Status: Acute (7) Pancytopenia: -She is okay with her hemoglobin 7.5, Hemoccult negative, order iron studies, get will get 1 unit of blood, denies a history of esophageal varices, denies hemoptysis, denies bloody or black stools -White blood cell count 3.1 -Platelet count 78 -Hold anticoagulation given platelet count -Likely secondary to liver failure Status: Acute (8) Anemia: Secondary to liver disease, hemoglobin 7.5, Hemoccult negative, will get 1 unit of PRBC Status: Acute (9) Nonalcoholic fatty liver disease: - patient sees a senior payroll specialist in [place], sounds like nonalcoholic fatty liver disease, could be cryptogenic liver disease -Has pancytopenia -INR 1.06, -Ammonia 52, AST 41, ALT 17, alk phos 79, total bili 1.3 -No abdominal pain, no abdominal distention Status: Acute (10) Diabetic peripheral neuropathy: Status: Acute (11) Restless leg syndrome: Status: Acute (12) Insulin dependent type 2 diabetes mellitus: -Continue Lantus 62 units twice daily, NovoLog 46 units 3 times daily with meals -Patient states that her blood sugars have been running high recently, she has been taking a sliding scale on top of NovoLog Status: Acute Additional A&P Information Patient is a full code SCDs for DVT prophylaxis, Lovenox and heparin are contraindicated given her platelet count of 78 Attestations Medical Necessity Statement*: Requires hospitalization, inpatient, greater than 2 midnights for acute hypoxic respiratory failure, chest pain Coding Level of Care Code Acute Internship for [facility] Fwd Diagnoses Acute respiratory failure with hypoxia J96.01 Chest pain R07.9 Heart failure with preserved ejection fraction I50.30 Aortic stenosis I35.0 COPD (chronic obstructive pulmonary disease) J44.9 Moderate aortic stenosis I35.0 Pancytopenia D61.818 Anemia D64.9 Nonalcoholic fatty liver disease K76.0 Diabetic peripheral neuropathy E11.42 Restless leg syndrome G25.81 Insulin dependent type 2 diabetes mellitus E11.9; Z79.4
[2019-11-06 21:21] LABS: Erythrocyte Sedimentation Rate 33 mm/hr (0-15)
[2019-11-06] MEDS: FUROsemide 10 mg/mL SDV 4mL 40 MG IVP (21:51)
--- NOTE | 2019-11-06 22:22 | ECG_ITS ---
NAME OF STUDY: LEXISCAN SESTAMIBI STRESS TEST INDICATION: Chest Pain PROCEDURE: At the baseline, the blood pressure was 205/81 mmHg with a heart rate of 75 bpm and oxygen saturation 94%. The electrocardiogram showed normal sinus rhythm, normal axis. ST and T wave abnormality in lead I, aVL and V6. The Lexiscan was infused over a period of 20 seconds. A total of 0.4 milligrams of Lexiscan was infused. The stress phase was 74 bpm, oxygen saturation 97% s. Heart rate at the end of the stress phase was 74 bpm, oxygen saturation of 97%] with a blood pressure 193/65 mmHg. The EKG at the peak infusion revealed no significant ST-T wave changes. Sestamibi was injected 20 seconds after the Lexiscan infusion. Blood pressure at the end of the recovery phase was 179/67 mmHg, oxygen saturation 96% with a heart rate of 74 beats per minute. Patient developed nausea 5 minutes into the test that resolved after administration of aminophylline. CONCLUSION: 1. No significant EKG changes with the LexiScan infusion. 2. Baseline hypertension with normal blood pressure and heart rate response. 4. Sestamibi perfusion scan pending; see separate report. Electronically Signed On 11-07-2019 10:55:26 CDT by Destiny Lundberg M.D. [email or web address]
[2019-11-06 22:23] LABS: Bacteria Urine TRACE; Bilirubin Urine Neg (NEGATIVE); Blood Urine Neg (Negative); Glucose Urine UA Norm (Normal); Ketones Urine Negative (Negative); Leukocyte Esterase Urine Negative (Negative); Nitrate Urine Negative (Negative); Protein Urine Neg (Negative); RBC Urine RARE /hpf (0-2); Squamous Epithelial Cell Urine 0-4 (0-5); Urine Appearance Clear (CLEAR); Urine Color Yellow (Yellow); Urobilinogen Urine Norm (Negative); WBC Urine RARE /hpf (0-5); pH Urine 6 (5-7)
[2019-11-06] MEDS: ropinirole 0.25 mg Tablet PO (23:17)
[2019-11-06] MEDS: gabapentin 400 mg Capsule 800 MG PO (23:17)
--- NOTE | 2019-11-06 23:39 | ECG_ITS ---
Measurements Intervals [place] Rate: 69 P: 67 MA: 152 QRS: 19 QRSD: 93 T: 133 QT: 414 QTc: [address] DEVIATION AND MODERATE T-WAVE ABNORMALITY, CONSIDER LATERAL ISCHEMIA [-0.1+ mV T WAVE IN I/aVL/V5/V6] Compared to ECG 08/31/2019 12:37:51 T-wave abnormality now present Possible ischemia now present Sinus arrhythmia no longer present Left ventricular hypertrophy no longer present ST (T wave) deviation no longer present Myocardial infarct finding no longer present Electronically Signed On 11-06-2019 19:40:42 CDT by Destiny Lundberg M.D. [email or web address]
[2019-11-06 23:58] LABS: Troponin 5 6HR 33.04 ng/mL (0-10); Troponin 5 6HR Delta 1.04 ng/L (0-12)
[2019-11-07] VITALS (12 sets, daily range): BP systolic 116–179; BP diastolic 47–69; PULSE 70–84; RESP 6–22; TEMP 36.4–36.8; O2SAT 91–98
[2019-11-07] MEDS: sodium chloride 0.9% 100 ML (01:15)
[2019-11-07 04:31] LABS: Basophils % 0.6 %; Eosinophils # 0.1 10^3/uL (0.0-0.8); Eosinophils % 4.2 %; Hematocrit 28.5 % (37.0-47.0); Hemoglobin 8.2 g/dL (11.5-15.3); Lymphocytes # 0.3 10^3/uL (0.8-4.8); Lymphocytes % 10.6 %; Mean Corpuscular HGB Conc 28.8 g/dL (30.0-36.0); Mean Corpuscular Hemoglobin 25.5 pg (28.0-34.0); Mean Corpuscular Volume 88.8 fL (81-99); Monocytes # 0.3 10^3/uL (0.2-0.9); Monocytes % 9.7 %; Neutrophils # 2.3 10^3/uL (1.8-7.7); Neutrophils % 74.3 %; Nucleated Red Blood Cells % 0 %; Platelet Count 79 10^3/cmm (130-400); Red Blood Count 3.21 10^6/uL (4.1-5.3); Red Cell Distribution Width 17.7 % (12.1-15.1); White Blood Count 3.1 10^3/uL (4.0-10.0)
[2019-11-07 04:44] LABS: Cholesterol 105 mg/dL (0-200); HDL Cholesterol 35 mg/dL (60-100); LDL Cholesterol Calculated 34 mg/dL (50-129); LDL HDL Ratio 0.97 RATIO (0.00-3.22); Triglycerides 179 mg/dL (0-150)
[2019-11-07 04:45] LABS: Alanine Aminotransferase 17 U/L (0-33); Albumin Level 3.4 g/dL (3.5-5.2); Alkaline Phosphatase 84 IU/L (35-105); Anion Gap 14.7 (5-19); Aspartate Amino Transferase 44 U/L (0-32); Blood Urea Nitrogen 13 mg/dL (8-23); Calcium 9.4 mg/dL (8.5-10.5); Carbon Dioxide 28 mmol/L (22-29); Chloride 101 mmol/L (98-107); Globulin 3.4 g/dL (1.3-4.6); Glucose 183 mg/dL (65-115); Magnesium 1.9 mg/dL (1.7-2.3); Osmolality Calculated 291 mOsm/kg (285-295); Phosphorus 4.5 mg/dL (2.5-4.5); Potassium 3.7 mmol/L (3.5-5.1); Sodium 140 mmol/L (136-145); Total Bilirubin 1.6 mg/dL (0.15-1.2); Total Protein 6.8 g/dL (6.6-8.7)
[2019-11-07 04:51] LABS: Estmated Average Glucose 108; Hemoglobin A1C 5.4 % (4.0-6.0)
[2019-11-07] MEDS: hydrocortisone 100 mg/2 mL SDV IVP (06:00)
[2019-11-07] MEDS: diphenhydrAMINE 50 mg/mL SDV 1mL IVP (06:00)
[2019-11-07 06:36] LABS: Glucose Point of Care 175 mg/dL (70-110)
[2019-11-07] MEDS: regadenoson 0.4 Mg/5 ml Syringe IVP (08:59)
[2019-11-07] MEDS: aminophylline 25 mg/mL SDV 10 mL IVP (09:11)
[2019-11-07] MEDS: cholecalciferol (vitamin D3) 1,000 unit Tablet 1000 UNIT PO (10:22)
[2019-11-07] MEDS: gabapentin 400 mg Capsule 800 MG PO ×3 (10:22→20:16)
[2019-11-07] MEDS: atorvastatin 40 mg Tablet 20 MG PO (10:23)
[2019-11-07] MEDS: aspirin 325 mg Tablet PO (10:23)
[2019-11-07] MEDS: memantine 5 mg tablet 10 MG PO ×2 (10:24→17:16)
[2019-11-07] MEDS: lactulose oral liq 20 gm/30 mL UDC PO ×2 (10:24→17:17)
[2019-11-07] MEDS: levothyroxine 125 mcg Tablet PO (10:24)
[2019-11-07] MEDS: levofloxacin-dextrose 5 % 750 MG/150 ML PREMIX 100 MG IV (10:24)
[2019-11-07] MEDS: duloxetine 30 mg Capsule PO ×2 (10:24→17:17)
[2019-11-07] MEDS: insulin glargine 100 units/1 mL 62 UNIT SUBCUT ×2 (10:25→20:16)
[2019-11-07] MEDS: FUROsemide 10 mg/mL SDV 4mL 40 MG IVP ×2 (10:25→17:17)
[2019-11-07] MEDS: ropinirole 0.25 mg Tablet PO ×3 (10:33→20:15)
--- NOTE | 2019-11-07 10:45 | PC.CHAP ---
Pastoral Care Encounter/Spiritual Assessment Type of Contact [] Declined spool hauler visit [] Patient/Family/Request visit [] Outpatient visit [] Follow-up visit [] Physician referral [] Code/Alert [x] Routine visit [] Staff referral [] Actively dying [] Patient sleeping [] Family support [] [] Out of room [] Palliative care [] [] Receiving care in room [] Pre-surgical visit [] Trauma [] Long length of stay [] ICU visit [] Other: Relational/Emotional Strength [] Patient feels connected with others/family/visitors/staff [] Distress [] Loneliness/isolation [] Abandonment Spirituality of Patient [] Person of [place] [] Attends Buddhism of their [place] [x] Believes in Prayer [] Reads Bible or Judaism materials [] There are Spiritual issues to be addressed [employer]er Interventions [x] Prayer [] Active listening [] Non-anxious presence [] Spiritual/emotional support [] Crisis/trauma care [] Spiritual counseling [] Bereavement support [] Provided bereavement packet [] Provided Bible/devotional materials [] Provided toy/stuffed animal, coloring book to patient or family member [] Provided Communion [] Anointing/[place] [] Salvation [x] Completed spiritual assessment [] Other: Impact on Illness or Injury [] Angry [] Fearful [] Anxious [] Often cries [] Exhaustion [] Unable to work [] Unable to attend mormon [] Unable to walk/stand [] Unable to read [] Unable to drive [] Unable to eat/drink [] Unable to sleep [] Unable to be with family [] Patient intubated [] Other: Summary Patient completed stress test. Taking meds, and ready to rest. Time spent with patient 15min
[2019-11-07 11:25] LABS: Glucose Point of Care 348 mg/dL (70-110)
--- NOTE | 2019-11-07 11:27 | PM.PN ---
Subjective Subjective: Interval history: Ascencion reports no chest discomfort now. She is still short of breath with exertion. She reports she does feel better than on admission. History and physical reviewed. Medications: Reviewed: Yes Vitals/I&O/Wt Last Vital Signs Temp 98.0 F 11/07/19 07:33 Pulse 72 11/07/19 11:00 Resp 20 H 11/07/19 11:00 BP 146/66 11/07/19 11:00 Pulse Ox 97 11/07/19 11:00 11/06/19 11/07/19 11/07/19 22:59 06:59 14:59 Intake Total 480 / 480 750 / 1230 500 / 500 Output Total 1800 / 1800 1300 / 1300 Balance 480 / 480 -1050 / -570 -800 / -800 Weight last 48 hrs Weight 125.282 kg Weight 122.062 kg Weight 117.934 kg Physical Exam Narrative: EXAM NARRATIVE: General exam is mild respiratory distress Cardiovascular regular rate and rhythm with a 3/6 systolic murmur Lungs crackles bibasilar Abdomen is soft with positive bowel sounds Extremities 1-2+ edema bilaterally. Data : 11/07/19 04:10 11/07/19 04:10 Micro: Microbiology 11/07/19 04:45 Gram Stain - Final Sputum - Expectorated Sputum 11/06/19 18:45 Bacterial Antigens - Final Urine,Clean Catch 11/06/19 23:35 Blood Culture - Preliminary Blood SPECIMEN COLLECTED 11/06/19 19:40 Blood Culture - Preliminary Blood SPECIMEN COLLECTED A&P Assessment and plan (1) Acute respiratory failure with hypoxia: Secondary to acute diastolic heart failure. Echocardiogram pending but previous one demonstrated 3/4 diastolic dysfunction in 2019 with preserved EF. Moderate aortic stenosis was noted. Oxygen as needed CT angiogram demonstrated no pulmonary embolism Secondary to concern of pneumonia Levaquin was started Status: Acute (2) Chest pain: Likely secondary to heart failure Troponin shows no significant delta Decrease aspirin to 81 mg secondary to concern of cirrhosis, anemia Continue statin Status: Acute (3) Heart failure with preserved ejection fraction: See notations under respiratory failure Status: Acute (4) Aortic stenosis: Await repeat echocardiogram Status: Acute (5) COPD (chronic obstructive pulmonary disease): No evidence of acute exacerbation Status: Acute (6) Moderate aortic stenosis: Status: Acute (7) Pancytopenia: Status post transfusion of 1 unit of blood secondary to anemia. Significant pancytopenia may be secondary to her underlying cirrhosis. Check stool Hemoccult. Protonix 40 mg daily. Status: Acute (8) Anemia: Secondary to liver disease, hemoglobin 7.5, Hemoccult negative, will get 1 unit of PRBC Protonix 40 mg daily Status: Acute (9) Nonalcoholic fatty liver disease: Sees [facility]ard reporter in [place]. Likely diagnosis is VALENZUELA Continue current medicines Status: Acute (10) Diabetic peripheral neuropathy: Status: Acute (11) Restless leg syndrome: Status: Acute (12) Insulin dependent type 2 diabetes mellitus: -Continue Lantus 62 units twice daily, NovoLog 46 units 3 times daily with meals -Patient states that her blood sugars have been running high recently, she has been taking a sliding scale on top of NovoLog Status: Acute Additional A&P Information Full code SCDs for DVT prophylaxis. Anticoagulation contraindicated secondary to thrombocytopenia Attestations Medical Necessity Statement*: Needs continued hospitalization for further diuresis secondary to acute diastolic heart failure Coding Level of Care Code Acute Quantitative Consultant for [facility] Diagnoses Acute respiratory failure with hypoxia J96.01 Chest pain R07.9 Heart failure with preserved ejection fraction I50.30 Aortic stenosis I35.0 COPD (chronic obstructive pulmonary disease) J44.9 Moderate aortic stenosis I35.0 Pancytopenia D61.818 Anemia D64.9 Nonalcoholic fatty liver disease K76.0 Diabetic peripheral neuropathy E11.42 Restless leg syndrome G25.81 Insulin dependent type 2 diabetes mellitus E11.9; Z79.4
--- NOTE | 2019-11-07 12:03 | PC.RESP ---
Patient given information on Pulmonary Rehab.
[2019-11-07] MEDS: omega-3 fatty acids 1,000 mg Capsule 1000 MG PO ×2 (15:10→20:15)
[2019-11-07] MEDS: lanolin oint 7 gm 1 APPLIC TOPICAL (15:10)
--- NOTE | 2019-11-07 15:42 | PM.CONSULT ---
Providers/Reason For Consult Consulting Physican/Specialty*: Dr. 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 She mentions she was at [facility] in [facility] [place] 5 weeks back for significant epistaxis. She recently had EGD and colonoscopy. She was discharged to OR and then 2 weeks back went home. She has been compliant with medications and thinks about a week back started having exertional dyspnea, leg swelling and orthopnea requiring sleeping in recliner. She was hospitalized with CHF exacerbation and underwent echo that showed worsening of aortic stenosis. I have been asked to assist in further management. Review of Systems Const: Denies: fever or chills Eyes: Denies: change in vision ENMT: Reports: nose bleeds; Denies: nasal discharge Card: Reports: chest pain, edema, shortness of breath on exertion and shortness of breath when lying down Resp: Reports: shortness of breath and non-productive cough; Denies: coughing up blood GI: Reports: blood in stool; Denies: abdominal pain, nausea, vomiting or black tarry stool : Denies: painful urination or blood in urine Musc: Reports: extremity swelling Skin/Breast: Denies: rash Neuro: Denies: weakness in extremities or slurred speech Psych: Denies: anxiety or depression Endo: Denies: tired all the time Terrence/Lymph: Denies: petechiae or purpura All/Imm: Denies: facial swelling Meds/Allergies Home Medications and Allergies Home Medications Medication Instructions Recorded Confirmed Type L.acid-B.bifidum-B.animal-FOS See Rx Instructions .ROUTE .COMPLEX 09/29/19 11/06/19 History [Probiotic Complex] cholecalciferol (vitamin D3) 25 mcg PO DAILY 09/29/19 11/06/19 History [Vitamin D3] cyclosporine [Restasis] 0.05 % OPHTHALMIC (EYE) BID 09/29/19 11/06/19 History dulaglutide [Trulicity] See Rx Instructions .ROUTE .COMPLEX 09/29/19 11/06/19 History duloxetine 30 mg PO BID 09/29/19 11/06/19 History furosemide 20 mg PO DAILY 09/29/19 11/06/19 History gabapentin 800 mg PO TID 09/29/19 11/06/19 History insulin glargine [Lantus U-100 See Rx Instructions .ROUTE .COMPLEX 09/29/19 11/06/19 History Insulin] insulin lispro [Humalog U-100 See Rx Instructions .ROUTE .COMPLEX 09/29/19 11/06/19 History Insulin] lactulose [Kristalose] See Rx Instructions .ROUTE .COMPLEX 09/29/19 11/06/19 History levothyroxine 125 mcg PO DAILY 09/29/19 11/06/19 History memantine 10 mg PO BID 09/29/19 11/06/19 History metformin 1,000 mg PO DAILY 09/29/19 11/06/19 History ljlbznnhltbf-Ue-mgqg-minerals See Rx Instructions .ROUTE .COMPLEX 09/29/19 11/06/19 History [Multiple Vitamin, Womens] omega 1-bro-ako-fish oil [Fish Oil] 1 cap PO TID 09/29/19 11/06/19 History pyridoxine (vitamin B6) [Vitamin 50 mg PO DAILY 09/29/19 11/06/19 History B-6] rifaximin [Xifaxan] 550 mg PO BID 09/29/19 11/06/19 History rivastigmine 1 patch TRANSDERMAL DAILY 09/29/19 11/06/19 History ropinirole 0.25 mg PO TID 09/29/19 11/06/19 History simvastatin 10 mg PO DAILY 09/29/19 11/06/19 History budesonide 11/06/19 History Allergies Allergy/AdvReac Type Severity Reaction Status Date / Time Iodinated Contrast Media Allergy ADR-Itching Verified 11/07/19 05:12 Latex, Natural Rubber Allergy ALGY-Rash Verified 09/29/19 10:30 Penicillins Allergy ALGY-Rash Verified 09/29/19 10:30 Sulfa (Sulfonamide Allergy ALGY-Rash Verified 09/29/19 10:30 Antibiotics) Current Medications Current Medications Generic Name Dose Route Start Last Admin Trade Name Freq PRN Reason Stop Dose Admin Aminophylline 25 mg 11/07/19 06:54 11/07/19 09:11 Aminophylline IVP 11/08/19 06:53 25 mg Q2M PRN Administration see dose instructions Atorvastatin Calcium 20 mg 11/07/19 09:00 11/07/19 10:23 Lipitor PO 20 mg DAILY LISA Administration Furosemide 40 mg 11/07/19 09:00 11/07/19 10:25 Lasix IVP 40 mg BID LISA Administration Gabapentin 800 mg 11/06/19 22:22 11/07/19 15:10 Neurontin PO 800 mg TID LISA Administration Levofloxacin/Dextrose 750 mg in 150 mls @ 100 mls/hr 11/07/19 09:00 11/07/19 12:00 Levaquin-D5w IV Infused DAILY [facility] Infusion Protocol Insulin Aspart 0 unit 11/07/19 08:00 11/07/19 11:40 Novolog SUBCUT 10 unit TIDWM LISA Administration Protocol Insulin Glargine 62 unit 11/07/19 09:00 11/07/19 10:25 Lantus SUBCUT 62 unit BID LSIA Administration Lactulose 20 gm 11/07/19 09:00 11/07/19 10:24 Constulose PO 20 gm BID LISA Administration Lanolin 1 applic 11/07/19 14:19 11/07/19 15:10 Lanolin Oint TOPICAL 1 applic PRN PRN Administration DRYNESS Levothyroxine Sodium 125 mcg 11/07/19 09:00 11/07/19 10:24 Synthroid PO 125 mcg DAILY LISA Administration Non-Formulary Medication 200 mg 11/07/19 09:00 11/07/19 10:26 Alpha Lipoic Acid PO Not Given DAILY [facility] Non-Formulary Medication 0.05 % 11/07/19 09:00 11/07/19 10:25 Cyclosporine [Restasis] EYEAFF 0.05 % BID LISA Administration Non-Formulary Medication 1 bag 11/07/19 09:00 11/07/19 10:26 Bqdezzgjtqpe-Pz-Vbtw-Minerals [Multiple Vitamin, Womens] PO Not Given DAILY [facility] Non-Formulary Medication 1 patch 11/07/19 09:00 11/07/19 10:26 Rivastigmine TRANSDERMA Not Given DAILY [facility] Pyridoxine HCl 50 mg 11/07/19 09:00 11/07/19 13:33 Vitamin B-6 PO Not Given DAILY LISA Ropinirole HCl 0.25 mg 11/06/19 22:22 11/07/19 15:10 Requip PO 0.25 mg TID LISA Administration Vitamin D 1,000 unit 11/07/19 09:00 11/07/19 10:22 Vitamin D3 PO 1,000 unit DAILY LISA Administration PFSH Acute PFSH: Medical History Anemia Cirrhosis Dementia Diabetes mellitus, type II Hemorrhage from nose Valvular heart disease Surgical History (Updated 09/29/19 @ 10:38 by Paulo Gray) H/O of nasal cauterization Family History (Updated 11/06/19 @ 21:14 by Bradly Howard MD) Other Diabetes Social History Smoking and tobacco status: former smoker Vitals/I&O/Wt Last Vital Signs Temp 97.9 F 11/07/19 14:56 Pulse 72 11/07/19 14:56 Resp 18 11/07/19 14:56 BP 129/65 11/07/19 14:56 Pulse Ox 97 11/07/19 14:56 11/07/19 11/07/19 11/07/19 06:59 14:59 22:59 Intake Total 750 / 1230 890 / 890 Output Total 1800 / 1800 1950 / 1950 Balance -1050 / -570 -1060 / -1060 Weight last 48 hrs Weight 276 lb 3.2 oz Weight 269 lb 1.6 oz Weight 260 lb Physical Exam Narrative: EXAM NARRATIVE: GENERAL: obese lady sitting on bed in no acute distress HEENT: Extraocular movement intact. Pupils equal round reactive to light. No icterus. NECK: No JVD appreciated CARDIOVASCULAR SYSTEM: regular, Grade 3/6 harsh systolic murmur in aortic area, soft S2 RESPIRATORY SYSTEM: Bilateral mid -basal rales, decreased BS bilateral bases. No use of accessory muscles. ABDOMEN: Soft, nontender and nondistended. Normal bowel sounds present. EXTREMITIES: No cyanosis or clubbing. 2+ bilateral edema upto knees. ROOF ASSEMBLER: Patient is alert oriented ?3. No focal neurological deficits. Data Labs: Other Labs: Baseline troponin T of 32, 120-minute troponin T of 32.5 and 6-hour troponin I of 33. Ammonia level of 52. Total bilirubin 1.6, AST 44, ALT 17, alkaline phosphatase 84, albumin 3.4 and globulin 3.4. Lipid panel with total cholesterol 105, triglyceride 179, LDL 34 and HDL 35. NT proBNP of 351. Hemoglobin A1c of 5.4. Micro: Micro: Microbiology 11/07/19 04:45 Gram Stain - Final Sputum - Expector ated Sputum 11/06/19 18:45 Bacterial Antigens - Final Urine,Clean Catch 11/06/19 23:35 Blood Culture - Pr eliminary Blood [facility] 11/06/19 19:40 Blood Culture - Pr eliminary Blood SPECIMEN [facility] Imaging^: Echo: I personally reviewed and interpreted this imaging study as follows: My impression: 07 November 2019 CONCLUSIONS 1. Normal left ventricular cavity size. Moderate concentric left ventricular hypertrophy. Normal left ventricular systolic function. Left ventricular ejection fraction is estimated at 60 %. No regional wall motion abnormalities. Normal diastolic function. 2. Severe aortic valve stenosis, peak velocity 4 m/s, peak gradient 63 mmHg mean gradient 40.9 mmHg, AZALIA 1 cm squared (LVOT-20 mm). Trace aortic valve regurgitation. 3. Moderate pulmonary hypertension with pulmonary artery pressure estimated at 51 mmHg. 4. Mild tricuspid valve regurgitation. 5. When compared to previous echocardiogram dated 05/21/2019, aortic valve stenosis has worsened. Lexiscan sestamibi myocardial perfusion imaging: I personally reviewed and interpreted this imaging study as follows: My impression: 07 November 2019 IMPRESSIONS 1. Myocardial perfusion imaging is normal. Breast attenuation artifact noted in mid to apical anterior and anteroseptal and apical paul. 2. Overall left ventricular systolic function is normal without regional wall motion abnormalities. 3. The left ventricular ejection fraction is normal with a value of 65%. 4. No coronary ischemia based on the study. 5. No prior similar studies to compare. CTA Chest: Radiologist's impression: IMPRESSION: Congestive heart failure. No findings of pulmonary embolus. Nonspecific low-density finding at lower T12 vertebral body will be correlated to MRI from [address] from 2017 when available. Probable cirrhosis with associated splenomegaly CXR: Radiologist's impression: IMPRESSION: Interval development of moderate to severe CHF with increasing cardiac size. EKG^: EKG 1: I personally reviewed and interpreted this EKG as follows: My Interpretation: SINUS RHYTHM ST DEVIATION AND MODERATE T-WAVE ABNORMALITY, CONSIDER LATERAL ISCHEMIA [-0.1+ mV T WAVE IN I/aVL/V5/V6] Compared to ECG 08/31/2019 12:37:51 T-wave abnormality now present Possible ischemia now present Sinus arrhythmia no longer present Left ventricular hypertrophy no longer present ST (T wave) deviation no longer present Myocardial infarct finding no longer present A&P Assessment and plan (1) Chest pain: Likley in setting of decompensated CHF. -No ischemia on stress test today. Status: Acute Qualifiers: Chest pain type: unspecified Qualified Code(s): R07.9 - Chest pain, unspecified (2) Heart failure with preserved ejection fraction: Likely in setting of underlying severe . -continue diuresis. -continue with I/O charting and daily weight. Status: Acute Qualifiers: Heart failure chronicity: acute on chronic Qualified Code(s): I50.33 - Acute on chronic diastolic (congestive) heart failure (3) Aortic stenosis: Severe on recent echo. She is not a candidate of SAVR with underlying multiple co-morbidities. -She would need LOI and referal for possible TAVR to [facility]. This can be done as an outpatient. These findings and management options discussed in detail with the patient. Status: Acute Qualifiers: Cardiac valve disease etiology: nonrheumatic Qualified Code(s): I35.0 - Nonrheumatic aortic (valve) stenosis (4) Insulin dependent type 2 diabetes mellitus: Status: Acute (5) Cirrhosis: Status: Acute (6) Anemia: Status: Acute Additional A&P Information Pancytopenia Thank you for allowing me to participate in patient's care. Please feel free to call with questions or concerns. Coding Level of Care Code Acute Medical Billing Specialist for Nestor Hernandez Diagnoses Chest pain R07.9 Chest pain type: unspecified Heart failure with preserved ejection fraction I50.33 Heart failure chronicity: acute on chronic Aortic stenosis I35.0 Cardiac valve disease etiology: nonrheumatic Insulin dependent type 2 diabetes mellitus E11.9; Z79.4 Cirrhosis K74.60 Anemia D64.9
[2019-11-07 16:58] LABS: Glucose Point of Care 255 mg/dL (70-110)
--- NOTE | 2019-11-07 20:40 | USCV_ITS ---
Ascencion Thomson Age: 69 Gender: F : 1950 Exam Date: 11/07/2019 06:21 Ordering Phys: Bradly Howard MD Technologist: Leticia Abarca Exam Location: [facility] [place] Indication: SOB BP: 139 / 78 HR: 75 Rhythm: Sinus Technical Quality: Adequate MEASUREMENTS (Male / Female) Normal Values 2D ECHO LV Diastolic Diameter PLAX 4.8 cm 4.2 - 5.9 / 3.9 - 5.3 cm LV Systolic Diameter PLAX 3.1 cm LV Chamber Size 4.2 cm IVS Diastolic Thickness 1.4 cm 0.6 - 1.0 / 0.6 - 0.9 cm IVS Systolic Thickness 2.1 cm LVPW Diastolic Thickness 1.2 cm 0.6 - 1.0 / 0.6 - 0.9 cm LVPW Systolic Thickness 1.6 cm RV Chamber Size 3.9 cm LVOT Diameter 2.0 cm LV Ejection Fraction 2D Teich 65.4 % LV Ejection Fraction MOD 2C 14.7 % LV Ejection Fraction 2C AL 19.8 % LA Diameter 4.7 cm LA Width 4.1 cm LA Height 5.1 cm RA Width 3.9 cm RA Height 5.0 cm Aorta at Sinotubular Diameter 2.7 cm M-MODE LV Diastolic Diameter MM 4.9 cm 4.2 - 5.9 / 3.9 - 5.3 cm LV Systolic Diameter MM 3.0 cm LV Ejection Fraction MM Teich 68.4 % IVS Diastolic Thickness MM 1.6 cm 0.6 - 1.0 / 0.6 - 0.9 cm IVS Systolic Thickness MM 1.6 cm LVPW Diastolic Thickness MM 1.0 cm 0.6 - 1.0 / 0.6 - 0.9 cm LVPW Systolic Thickness MM 1.5 cm RV Diastolic Diameter MM 1.9 cm Aortic Annulus Diameter 3.0 cm LA Ao Ratio MM 1.6 MV E Point Septal Separation 0.8 cm DOPPLER AV Peak Velocity 429.0 cm/s LVOT Peak Velocity 118.0 cm/s AV Area Cont Eq vti 1.0 cm squared AV Area Cont Eq pk 0.9 cm squared MV Area PHT 3.1 cm squared Mitral E to A Ratio 1.7 MV E' Velocity 13.0 cm/s Mitral E to MV E' Ratio 15.2 Mitral E to LV E' Lateral Ratio 12.3 Mitral E to LV E' Septal Ratio 20.0 TR Peak Velocity 326.6 cm/s TR Peak Gradient 42.7 mmHg TR Mean Velocity 233.3 cm/s TR Mean Gradient 24.1 mmHg TR Velocity Time Integral 104.0 cm TV Peak E Velocity 77.0 cm/s Right Atrial Pressure 8.0 mmHg Pulmonary Artery Systolic Pressu 50.7 mmHg PV Peak Velocity 111.0 cm/s RV Acceleration Time 0.1 s RV Ejection Time 0.4 s RV AcT/ET 0.4 FINDINGS Left Ventricle Normal left ventricular cavity size. Moderate concentric left ventricular hypertrophy. Normal left ventricular systolic function. Left ventricular ejection fraction is estimated at 60 %. No regional wall motion abnormalities. Normal diastolic function. Right Ventricle Normal right ventricular size and systolic function. Right ventricular systolic pressure 50.7 mmHg. Right Atrium Normal right atrial size. Left Atrium Upper normal left atrial size. Mitral Valve Moderate mitral annular calcification. No mitral valve stenosis. Trace-mild posteriorly directed mitral valve regurgitation. Aortic Valve Markedly thickened and calcified trileaflet aortic valve. Severe aortic valve stenosis, peak velocity 4 m/s, peak gradient 63 mmHg mean gradient 40.9 mmHg, AZALIA 1 cm squared (LVOT-20 mm). Trace aortic valve regurgitation. Tricuspid Valve Structurally normal tricuspid valve. Mild tricuspid valve regurgitation. Pulmonic Valve Structurally normal pulmonic valve. No pulmonary valve stenosis. Trace pulmonary valve regurgitation. Pericardium No pericardial effusion. Aorta Normal-sized aortic root. CONCLUSIONS 1. Normal left ventricular cavity size. Moderate concentric left ventricular hypertrophy. Normal left ventricular systolic function. Left ventricular ejection fraction is estimated at 60 %. No regional wall motion abnormalities. Normal diastolic function. 2. Severe aortic valve stenosis, peak velocity 4 m/s, peak gradient 63 mmHg mean gradient 40.9 mmHg, AZALIA 1 cm squared (LVOT-20 mm). Trace aortic valve regurgitation. 3. Moderate pulmonary hypertension with pulmonary artery pressure estimated at 51 mmHg. 4. Mild tricuspid valve regurgitation. 5. When compared to previous echocardiogram dated 05/21/2019, aortic valve stenosis has worsened. Destiny Lundberg MD (Electronically Signed) Final Date: 07 November 2019 12:48 S
[2019-11-07 21:26] LABS: Glucose Point of Care 210 mg/dL (70-110)
--- NOTE | 2019-11-07 22:22 | NMCV_ITS ---
NM christina perf SPECT r/s* [id number] [place] Ascencion Age: 69 Gender: F : 1950 Exam Date: 11/07/2019 07:39 Ordering Phys: Bradly Howard MD Technologist: RAQUEL Delarosa Exam Location: [facility] Indications: Cest pain STRESS TEST [facility] IMAGE PROTOCOL Rest/Stress 1 Lexiscan Day Radiopharmaceutical Dose (mCi) Administration Site Administered by Rest: Tc-99m 10.9 IV RAQUEL Delarosa Sestamibi Stress:Tc-99m 32.9 IV RAQUEL Delarosa Sestamibi Rest: 07-Nov-2019 60 Discovery 630 Stress: 07-Nov-2019 45 Discovery 630 0.4mg Lexiscan. Supine position only as patient was unable to lay prone. SPECT RESULTS Technical Quality: Good Raw Data Analysis: Breast attenuation, Soft tissue attenuation Image Corrections: No attenuation or motion correction applied Summed Stress Score: 1 Summed Rest Score: 6 Summed Difference Score: 0 PERFUSION FINDINGS Medium sized perfusion abnormality of mild severity of mid to apical anterior, mid to apical anteroseptal and apical lateral paul with improved tracer uptake on stress images. This is suggestive of attenuation artifact. FUNCTIONAL RESULTS (calculated via Gated SPECT) Stress Image LV EF (%): 65 Stress EDV (mL):135 TID: 1.12 Stress ESV (mL):47 FUNCTIONAL FINDINGS: The left ventricle is normal in size. Transient Ischemia Dilatation of 1.1. There is normal left ventricular systolic function. The left ventricular ejection fraction is normal with a value of 65%. There is normal left ventricular wall thickening. IMPRESSIONS 1. Myocardial perfusion imaging is normal. Breast attenuation artifact noted in mid to apical anterior and anteroseptal and apical paul. 2. Overall left ventricular systolic function is normal without regional wall motion abnormalities. 3. The left ventricular ejection fraction is normal with a value of 65%. 4. No coronary ischemia based on the study. 5. No prior similar studies to compare. Destiny Lundberg MD (Electronically Signed) Final Date: 07 November 2019 10:43 S
[2019-11-08] VITALS (11 sets, daily range): BP systolic 123–149; BP diastolic 61–74; PULSE 71–84; RESP 16–24; TEMP 36.6–37.1; O2SAT 90–100
[2019-11-08 05:10] LABS: Basophils % 0.9 %; Eosinophils # 0.2 10^3/uL (0.0-0.8); Eosinophils % 4.6 %; Hematocrit 29.1 % (37.0-47.0); Hemoglobin 8.6 g/dL (11.5-15.3); Lymphocytes # 0.5 10^3/uL (0.8-4.8); Lymphocytes % 10.8 %; Mean Corpuscular HGB Conc 29.6 g/dL (30.0-36.0); Mean Corpuscular Hemoglobin 25.7 pg (28.0-34.0); Mean Corpuscular Volume 86.9 fL (81-99); Mean Platelet Volume 11.7 fL (7.4-10.4); Monocytes # 0.5 10^3/uL (0.2-0.9); Monocytes % 12.2 %; Neutrophils # 3.1 10^3/uL (1.8-7.7); Nucleated Red Blood Cells % 0 %; Platelet Count 86 10^3/cmm (130-400); Red Blood Count 3.35 10^6/uL (4.1-5.3); Red Cell Distribution Width 17.9 % (12.1-15.1); White Blood Count 4.4 10^3/uL (4.0-10.0)
[2019-11-08 05:19] LABS: Alanine Aminotransferase 18 U/L (0-33); Albumin Level 3.6 g/dL (3.5-5.2); Alkaline Phosphatase 79 IU/L (35-105); Anion Gap 13.4 (5-19); Aspartate Amino Transferase 41 U/L (0-32); Blood Urea Nitrogen 18 mg/dL (8-23); Calcium 9.4 mg/dL (8.5-10.5); Carbon Dioxide 29 mmol/L (22-29); Chloride 97 mmol/L (98-107); Globulin 3.3 g/dL (1.3-4.6); Glucose 163 mg/dL (65-115); Magnesium 1.9 mg/dL (1.7-2.3); Osmolality Calculated 282 mOsm/kg (285-295); Phosphorus 3.8 mg/dL (2.5-4.5); Potassium 3.4 mmol/L (3.5-5.1); Sodium 136 mmol/L (136-145); Total Bilirubin 2.1 mg/dL (0.15-1.2); Total Protein 6.9 g/dL (6.6-8.7)
[2019-11-08 06:54] LABS: Glucose Point of Care 172 mg/dL (70-110)
--- NOTE | 2019-11-08 07:41 | PM.PN ---
Subjective Subjective: Interval history: Ascencion reports she is feeling okay. A little less short of breath. Still swollen. Had slight bleeding from the nose last night. Medications: Reviewed: Yes Vitals/I&O/Wt Last Vital Signs Temp 97.9 F 11/08/19 07:26 Pulse 74 11/08/19 07:26 Resp 20 H 11/08/19 07:26 BP 123/66 11/08/19 07:26 Pulse Ox 94 11/08/19 07:26 11/07/19 11/08/19 11/08/19 22:59 06:59 14:59 Intake Total 360 / 1250 200 / 1450 Output Total 1100 / 3050 Balance -740 / -1800 200 / -1600 Weight last 48 hrs Weight 125.781 kg Weight 125.282 kg Weight 122.062 kg Weight 117.934 kg Physical Exam Narrative: EXAM NARRATIVE: General exam without respiratory distress, diuresis not as great as expected Cardiovascular regular rate and rhythm with a 3/6 systolic murmur Lungs few crackles right, left now clear Abdomen is soft with positive bowel sounds Extremities 1 edema bilaterally. Data : 11/08/19 04:25 11/08/19 04:25 Micro: Microbiology 11/06/19 23:35 Blood Culture - Preliminary Blood NEGATIVE TO DATE 11/06/19 19:40 Blood Culture - Preliminary Blood NEGATIVE TO DATE 11/07/19 04:45 Gram Stain - Final Sputum - Expectorated Sputum 11/06/19 18:45 Bacterial Antigens - Final Urine,Clean Catch A&P Assessment and plan (1) Acute respiratory failure with hypoxia: Secondary to acute diastolic heart failure. Echocardiogram demonstrates preserved EF but severe aortic stenosis. Cardiology consulted and will continue to follow Increase Lasix to 60 mg twice daily Oxygen as needed CT angiogram demonstrated no pulmonary embolism Secondary to concern of pneumonia Levaquin was started Status: Acute (2) Chest pain: Likely secondary to heart failure Troponin shows no significant delta At this point discontinue aspirin secondary to epistaxis last night Continue statin Status: Acute Qualifiers: Chest pain type: unspecified Qualified Code(s): R07.9 - Chest pain, unspecified (3) Heart failure with preserved ejection fraction: Crease Lasix Status: Acute Qualifiers: Heart failure chronicity: acute on chronic Qualified Code(s): I50.33 - Acute on chronic diastolic (congestive) heart failure (4) Aortic stenosis: Await repeat echocardiogram Status: Acute Qualifiers: Cardiac valve disease etiology: nonrheumatic Qualified Code(s): I35.0 - Nonrheumatic aortic (valve) stenosis (5) COPD (chronic obstructive pulmonary disease): No evidence of acute exacerbation Status: Acute (6) Moderate aortic stenosis: Will need further evaluation for possible TAVR in the future Status: Acute (7) Pancytopenia: Status post transfusion of 1 unit of blood secondary to anemia. Significant pancytopenia may be secondary to her underlying cirrhosis. Check stool Hemoccult. Protonix 40 mg daily. Hemoglobin stable today Status: Acute (8) Anemia: Secondary to liver disease, hemoglobin 7.5, Hemoccult negative, will get 1 unit of PRBC Protonix 40 mg daily Hemoglobin stable today Status: Acute (9) Nonalcoholic fatty liver disease: Sees computer programmer in [place]. Likely diagnosis is VALENZUELA Continue current medicines Status: Acute (10) Diabetic peripheral neuropathy: Status: Acute (11) Restless leg syndrome: Status: Acute (12) Insulin dependent type 2 diabetes mellitus: -Continue Lantus 62 units twice daily, NovoLog 46 units 3 times daily with meals -Patient states that her blood sugars have been running high recently, she has been taking a sliding scale on top of NovoLog Status: Acute Additional A&P Information Full code SCDs for DVT prophylaxis. Anticoagulation contraindicated secondary to thrombocytopenia Attestations Medical Necessity Statement*: Needs continued hospitalization for further diuresis secondary to acute diastolic heart failure Coding Level of Care Code Acute Palliative Medicine Physician for [facility] Diagnoses Acute respiratory failure with hypoxia J96.01 Chest pain R07.9 Chest pain type: unspecified Heart failure with preserved ejection fraction I50.33 Heart failure chronicity: acute on chronic Aortic stenosis I35.0 Cardiac valve disease etiology: nonrheumatic COPD (chronic obstructive pulmonary disease) J44.9 Moderate aortic stenosis I35.0 Pancytopenia D61.818 Anemia D64.9 Nonalcoholic fatty liver disease K76.0 Diabetic peripheral neuropathy E11.42 Restless leg syndrome G25.81 Insulin dependent type 2 diabetes mellitus E11.9; Z79.4
[2019-11-08] MEDS: gabapentin 400 mg Capsule 800 MG PO ×3 (09:02→21:00)
[2019-11-08] MEDS: omega-3 fatty acids 1,000 mg Capsule 1000 MG PO ×3 (09:02→21:00)
[2019-11-08] MEDS: cholecalciferol (vitamin D3) 1,000 unit Tablet 1000 UNIT PO (09:02)
[2019-11-08] MEDS: pyridoxine 50 mg Tablet PO (09:03)
[2019-11-08] MEDS: atorvastatin 40 mg Tablet 20 MG PO (09:03)
[2019-11-08] MEDS: pantoprazole DR 40 mg Tablet PO (09:03)
[2019-11-08] MEDS: levothyroxine 125 mcg Tablet PO (09:04)
[2019-11-08] MEDS: ropinirole 0.25 mg Tablet PO ×3 (09:05→21:00)
[2019-11-08] MEDS: memantine 5 mg tablet 10 MG PO ×2 (09:05→18:27)
[2019-11-08] MEDS: duloxetine 30 mg Capsule PO ×2 (09:08→18:28)
[2019-11-08] MEDS: lactulose oral liq 20 gm/30 mL UDC PO (09:15)
[2019-11-08] MEDS: FUROsemide 10 mg/mL SDV 10mL 60 MG IVP ×2 (09:19→18:28)
[2019-11-08] MEDS: ipratropium-albuterol 3 mL Neb INHALATION ×2 (09:20→15:11)
[2019-11-08] MEDS: insulin glargine 100 units/1 mL 62 UNIT SUBCUT ×2 (09:22→21:00)
[2019-11-08] MEDS: levofloxacin-dextrose 5 % 750 MG/150 ML PREMIX 100 MG IV (09:39)
[2019-11-08 10:59] LABS: Glucose Point of Care 285 mg/dL (70-110)
[2019-11-08 16:31] LABS: Glucose Point of Care 172 mg/dL (70-110)
--- NOTE | 2019-11-08 19:36 | PM.PN ---
Subjective Subjective: Interval history: She has nose bleed last night, No CP, SOB has improved Medications: Reviewed: Yes Vitals/I&O/Wt Last Vital Signs Temp 97.8 F 11/08/19 15:41 Pulse 74 11/08/19 15:41 Resp 18 11/08/19 15:41 BP 146/74 11/08/19 15:41 Pulse Ox 97 11/08/19 15:41 11/08/19 11/08/19 11/08/19 06:59 14:59 22:59 Intake Total 200 / 1450 360 / 360 480 / 840 Output Total 1090 / 1090 680 / 1770 Balance 200 / -1600 -730 / -730 -200 / -930 Weight last 48 hrs Weight 277 lb 4.8 oz Weight 276 lb 3.2 oz Weight 269 lb 1.6 oz Physical Exam Narrative: EXAM NARRATIVE: GENERAL: obese lady sitting on bed in no acute distress HEENT: Extraocular movement intact. Pupils equal round reactive to light. No icterus. NECK: No JVD appreciated CARDIOVASCULAR SYSTEM: regular, Grade 3/6 harsh systolic murmur in aortic area, soft S2 RESPIRATORY SYSTEM: Bilateral mid -basal rales (improved), decreased BS bilateral bases. EXTREMITIES: No cyanosis or clubbing. 1-2+ bilateral edema upto knees. STEREOTYPER APPRENTICE: Patient is alert oriented ?3. No focal neurological deficits. Data : 11/08/19 04:25 11/08/19 04:25 Micro: Microbiology 11/06/19 18:45 Urine Culture - Preliminary Urine,Clean Catch Enterococcus species Bacterial Antigens - Final 11/07/19 04:45 Gram Stain - Final Sputum - Expectorated Sputum Sputum Culture - Preliminary Staphylococcus aureus Pseudomonas species 11/06/19 23:35 Blood Culture - Preliminary Blood NEGATIVE TO DATE 11/06/19 19:40 Blood Culture - Preliminary Blood NEGATIVE TO DATE A&P Assessment and plan (1) Chest pain: Likley in setting of decompensated CHF. -No ischemia on stress test today. Status: Acute Qualifiers: Chest pain type: unspecified Qualified Code(s): R07.9 - Chest pain, unspecified (2) Heart failure with preserved ejection fraction: Acute on chronic decompensated CHF -Likely in setting of underlying severe . -Agree with increasing lasix to 60 mg IV twice a day. -continue with I/O charting and daily weight. Status: Acute Qualifiers: Heart failure chronicity: acute on chronic Qualified Code(s): I50.33 - Acute on chronic diastolic (congestive) heart failure (3) Aortic stenosis: Severe on recent echo. She is not a candidate of SAVR with underlying multiple co-morbidities. -She would need LOI/cardiac CT and referal for possible TAVR to [facility] [place]. This can be done as an outpatient. These findings and management options discussed in detail with the patient. Status: Acute Qualifiers: Cardiac valve disease etiology: nonrheumatic Qualified Code(s): I35.0 - Nonrheumatic aortic (valve) stenosis (4) Insulin dependent type 2 diabetes mellitus: Status: Acute (5) Cirrhosis: Status: Acute (6) Anemia: Status: Acute Additional A&P Information Pancytopenia Hypokalemia : replaced Thank you for allowing me to participate in patient's care. Please feel free to call with questions or concerns. Attestations Medical Necessity Statement*: Hospital stay for decompensated CHF Coding Level of Care Code Acute Preparator for [facility] Fwd Diagnoses Chest pain R07.9 Chest pain type: unspecified Heart failure with preserved ejection fraction I50.33 Heart failure chronicity: acute on chronic Aortic stenosis I35.0 Cardiac valve disease etiology: nonrheumatic Insulin dependent type 2 diabetes mellitus E11.9; Z79.4 Cirrhosis K74.60 Anemia D64.9
[2019-11-08 20:35] LABS: Glucose Point of Care 263 mg/dL (70-110)
[2019-11-09] VITALS (8 sets, daily range): BP systolic 103–138; BP diastolic 61–84; PULSE 68–81; RESP 18–20; TEMP 36.4–36.9; O2SAT 85–98
[2019-11-09 05:45] LABS: Eosinophils # 0.2 10^3/uL (0.0-0.8); Eosinophils % 6.2 %; Hematocrit 30.5 % (37.0-47.0); Lymphocytes # 0.4 10^3/uL (0.8-4.8); Lymphocytes % 13.1 %; Mean Corpuscular HGB Conc 29.5 g/dL (30.0-36.0); Mean Corpuscular Hemoglobin 25.7 pg (28.0-34.0); Mean Corpuscular Volume 87.1 fL (81-99); Mean Platelet Volume 11.9 fL (7.4-10.4); Monocytes # 0.4 10^3/uL (0.2-0.9); Monocytes % 14.4 %; Nucleated Red Blood Cells % 0 %; Platelet Count 83 10^3/cmm (130-400); White Blood Count 3.1 10^3/uL (4.0-10.0)
[2019-11-09 06:18] LABS: Alanine Aminotransferase 16 U/L (0-33); Albumin Level 3.7 g/dL (3.5-5.2); Alkaline Phosphatase 83 IU/L (35-105); Anion Gap 14.6 (5-19); Aspartate Amino Transferase 41 U/L (0-32); Blood Urea Nitrogen 16 mg/dL (8-23); Calcium 9.5 mg/dL (8.5-10.5); Carbon Dioxide 31 mmol/L (22-29); Chloride 98 mmol/L (98-107); Glucose 113 mg/dL (65-115); Osmolality Calculated 287 mOsm/kg (285-295); Phosphorus 4.5 mg/dL (2.5-4.5); Potassium 3.6 mmol/L (3.5-5.1); Sodium 140 mmol/L (136-145); Total Bilirubin 1.6 mg/dL (0.15-1.2); Total Protein 7.7 g/dL (6.6-8.7)
[2019-11-09 06:41] LABS: Glucose Point of Care 111 mg/dL (70-110)
[2019-11-09] MEDS: ipratropium-albuterol 3 mL Neb INHALATION (08:10)
[2019-11-09] MEDS: lactulose oral liq 20 gm/30 mL UDC PO (08:23)
[2019-11-09] MEDS: FUROsemide 10 mg/mL SDV 10mL 60 MG IVP (08:23)
[2019-11-09] MEDS: gabapentin 400 mg Capsule 800 MG PO (08:25)
[2019-11-09] MEDS: atorvastatin 40 mg Tablet 20 MG PO (08:25)
[2019-11-09] MEDS: cholecalciferol (vitamin D3) 1,000 unit Tablet 1000 UNIT PO (08:25)
[2019-11-09] MEDS: duloxetine 30 mg Capsule PO (08:25)
[2019-11-09] MEDS: levothyroxine 125 mcg Tablet PO (08:25)
[2019-11-09] MEDS: memantine 5 mg tablet 10 MG PO (08:26)
[2019-11-09] MEDS: insulin glargine 100 units/1 mL 62 UNIT SUBCUT (09:23)
--- NOTE | 2019-11-09 09:26 | PC.SOCIAL ---
IMM Update Pg 2 of IMM given and explained to patient. Copy provided.
--- NOTE | 2019-11-09 10:34 | PM.DCS ---
Discharge Providers Date of Admission: 11/06/19 20:40 Date of Discharge: November 09, 2019 Attending Provider at Admission: Bradly Howard MD Attending Provider at Discharge: Miky Schaefer MD Primary Care Provider: Jolie Peck Diagnoses at Discharge Discharge Diagnosis (1) Chest pain: Status: Acute Problem details: Nuclear stress test demonstrated no reversible ischemia. CTA no pulmonary embolism. Echocardiogram demonstrated severe aortic stenosis, cardiology to follow-up as an outpatient. Qualifiers: Chest pain type: unspecified Qualified Code(s): R07.9 - Chest pain, unspecified (2) Heart failure with preserved ejection fraction: Status: Acute Qualifiers: Heart failure chronicity: acute on chronic Qualified Code(s): I50.33 - Acute on chronic diastolic (congestive) heart failure (3) Aortic stenosis: Status: Acute Problem details: See above, echocardiogram demonstrating gradient of 40.9, aortic valve area 1 Qualifiers: Cardiac valve disease etiology: nonrheumatic Qualified Code(s): I35.0 - Nonrheumatic aortic (valve) stenosis (4) Insulin dependent type 2 diabetes mellitus: Status: Acute (5) Cirrhosis: Status: Acute (6) Anemia: Status: Acute Reason for Visit Reason for Visit: Reason For Visit: CHEST PAIN Hospital Course Hospital Course: Ascencion presented to the hospital with chest discomfort and shortness of breath. Lower extremity edema was also noted. CTA of the chest was done demonstrating no pulmonary embolism. Troponin was slightly high. Secondary to clinical symptoms and signs of heart failure diuresis was initiated. Serial troponins were ordered and no significant concerning trend or EKG changes were noted. Echocardiogram was performed demonstrating severe aortic stenosis. Nuclear stress testing was performed demonstrating no reversible ischemia. Cardiology consultation was obtained, with concern of severe aortic stenosis. Outpatient follow-up would be arranged. During the patient's hospital course she diuresed well with approximately 4 L taken off overall. Patient denied any chest discomfort while in the hospital. Lower extremity edema and shortness of breath improved significantly. At end of hospital discharge it was noted the patient had a very small, 4 mm pustule right thigh. While in the hospital there was also concern for pneumonia on chest x-ray and patient received Levaquin IV, and will complete a course p.o. as an outpatient. Small right thigh abscess will be followed up with her primary care provider. No further antibiotics other than that prescribed already at discharge as drainage occurred in hospital. Procedure note: After verbal informed consent was obtained, with risks being bleeding, infection, need for further procedures Betadine was used to create a sterile field. A scalpel was then used to make a small incision over the abscess. Slight amount of bloody fluid drained but no shar pus. Bandage was placed. No obvious complications. Estimate blood loss less than 1 cc. Physical Exam Narrative: EXAM NARRATIVE: General exam no apparent distress Cardiovascular regular in rhythm with a 3/6 systolic murmur Lungs clear Abdomen is soft with positive bowel sounds Extremities trace edema bilaterally. Right thigh with very small 3 to 4 mm pustule. Procedure as above. Discharge Data Data Completed and Pending: Completed Studies During Hospitalization Category Date Time Status CT angio chest PE protcl [id number] Urge nt Cat Scan 11/06/19 20:40 Completed Sestamibi Stress Test Request Routi ne Exams 11/06/19 22:22 Completed XR chest 1V june ble [id number] Stat Exams 11/06/19 17:38 Completed NM christina perf SPECT r/s* [id number] Routin e Nuc Med 11/07/19 22:22 Completed CV echo complete* [id number] Urgent Ultrasound 11/07/19 20:40 Completed Pending at discharge Category Date Time Status Bacterial Antigen Stat Lab 11/06/19 18:45 Results Blood Culture Sta t Lab 11/06/19 23:35 Results Immunochemical Fe rowdy OCB Routine Lab 11/08/19 09:25 Ordered Leukocyte Reduced RBC Stat Lab 11/06/19 19:40 Results Sputum Culture an d Gram Stain Stat Lab 11/06/19 22:22 Results Type and Screen S tat Lab 11/06/19 19:40 Results Urine Culture Sta t Lab 11/06/19 18:45 Results Labs from last 24 hours 11/09/19 11/09/19 11/09/19 06:22 05:06 05:06 WBC 3.1 L RBC 3.50 L Hgb 9.0 L Hct 30.5 L MCV 87.1 MCH 25.7 L MCHC 29.5 L RDW 18.0 H Plt Count 83 L MPV 11.9 H Neut % (Auto) 65.0 Lymph % (Auto) 13.1 Henry % (Auto) 14.4 Eos % (Auto) 6.2 Baso % (Auto) 1.0 Neut # (Auto) 2.0 Lymph # (Auto) 0.4 L Henry # (Auto) 0.4 Eos # (Auto) 0.2 Baso # (Auto) 0.0 Nucleated RBC % (a uto) 0 Nucleated RBCs # 0.0 Sodium 140 Potassium 3.6 Chloride 98 Carbon Dioxide 31 H Anion Gap 14.6 BUN 16 Creatinine 0.8 Glucose 113 POC Glucose 111 Calculated Osmolal ity 287 Calcium 9.5 Phosphorus 4.5 Magnesium 2.0 Total Bilirubin 1.6 H AST 41 H ALT 16 Alkaline Phosphata se 83 Total Protein 7.7 Albumin 3.7 Globulin 4.0 11/08/19 11/08/19 11/08/19 20:18 16:18 10:40 WBC RBC Hgb Hct MCV MCH MCHC RDW Plt Count MPV Neut % (Auto) Lymph % (Auto) Henry % (Auto) Eos % (Auto) Baso % (Auto) Neut # (Auto) Lymph # (Auto) Henry # (Auto) Eos # (Auto) Baso # (Auto) Nucleated RBC % (a uto) Nucleated RBCs # Sodium Potassium Chloride Carbon Dioxide Anion Gap BUN Creatinine Glucose POC Glucose 263 172 285 Calculated Osmolal ity Calcium Phosphorus Magnesium Total Bilirubin AST ALT Alkaline Phosphata se Total Protein Albumin Globulin Vitals: Last Vital Signs Temp 97.5 F L 11/09/19 07:27 Pulse 80 11/09/19 08:12 Resp 18 11/09/19 08:09 BP 103/61 11/09/19 07:27 Pulse Ox 94 11/09/19 08:09 Discharge Plan Discharge Patient Disposition: Home Health Service Condition: Stable Prescriptions: New pantoprazole 40 mg Tablet,Delayed Release (Dr/Ec) 40 mg PO DAILY Qty: 30 RF: 0 furosemide [Lasix] 40 mg tablet 40 mg PO BID Qty: 60 RF: 0 levofloxacin [Levaquin] 750 mg tablet 750 mg PO DAILY 7 Days Qty: 7 RF: 0 Continued Lantus U-100 Insulin 100 unit/mL Solution See Rx Instructions .ROUTE .COMPLEX RF: 0 simvastatin 10 mg Tablet 10 mg PO DAILY RF: 0 gabapentin 800 mg Tablet 800 mg PO TID RF: 0 ropinirole 0.25 mg Tablet 0.25 mg PO TID RF: 0 lactulose [Kristalose] 10 gram Packet See Rx Instructions .ROUTE .COMPLEX RF: 0 levothyroxine 125 mcg Tablet 125 mcg PO DAILY RF: 0 pyridoxine (vitamin B6) [Vitamin B-6] 100 mg Tablet 50 mg PO DAILY RF: 0 insulin lispro [Humalog U-100 Insulin] 100 unit/mL Solution See Rx Instructions .ROUTE .COMPLEX RF: 0 Multiple Vitamin, Womens Tablet See Rx Instructions .ROUTE .COMPLEX RF: 0 Restasis 0.05 % Dropperette 0.05 % ophthalmic (eye) BID RF: 0 memantine 10 mg Tablet 10 mg PO BID RF: 0 metformin 1,000 mg Tablet Extended Release 24hr 1,000 mg PO DAILY RF: 0 cholecalciferol (vitamin D3) [Vitamin D3] 25 mcg (1,000 unit) Tablet 25 mcg PO DAILY RF: 0 omega 0-rof-hqg-fish oil [Fish Oil] 300-1,000 mg Capsule 1 cap PO TID RF: 0 Xifaxan 550 mg Tablet 550 mg PO BID RF: 0 rivastigmine 13.3 mg/24 hour Patch 24 Hour 1 patch TRANSDERMAL DAILY RF: 0 Probiotic Complex 25 billion cell -100 mg Capsule See Rx Instructions .ROUTE .COMPLEX RF: 0 Trulicity 1.5 mg/0.5 mL Pen Injector See Rx Instructions .ROUTE .COMPLEX RF: 0 duloxetine 30 mg Capsule, Delayed Rel Sprinkle 30 mg PO BID RF: 0 budesonide 0.5 mg/2 mL suspension for nebulization RF: 0 Discontinued furosemide 20 mg Tablet 20 mg PO DAILY RF: 0 Discharge Orders: Discharge Order (Routine); Ordered 11/09/19 Ordered By: Miky Schaefer Referrals: [facility] [Outside] Abhi Hargrove MD [Physician] - 7-10 days Jolie Peck [Primary Care Provider] - 4-7 days (BMP with primary care provider on follow-up, recheck of right thigh lesion) Discharge Diet: Cardiac and Diabetic Discharge Activity: Increase activity as tolerated Activity Restrictions/Additional Instructions: Home oxygen evaluation prior to discharge. Take all medicine as prescribed Follow-up with your primary care provider 3 to 5 days with BMP, CBC, recheck of right thigh lesion Discharge Attestations Time Spent in Discharge Care*: greater than 30 min Quality Metrics Clinical Quality Measures During this hospital stay, did patient experience: None Coding Level of Care Code Acute Investor Relations Coordinator for [facility] Diagnoses Chest pain R07.9 Chest pain type: unspecified Heart failure with preserved ejection fraction I50.33 Heart failure chronicity: acute on chronic Aortic stenosis I35.0 Cardiac valve disease etiology: nonrheumatic Insulin dependent type 2 diabetes mellitus E11.9; Z79.4 Cirrhosis K74.60 Anemia D64.9
[2019-11-09] MEDS: ropinirole 0.25 mg Tablet PO (10:38)
[2019-11-09] MEDS: pantoprazole DR 40 mg Tablet PO (10:40)
[2019-11-09] MEDS: levofloxacin-dextrose 5 % 750 MG/150 ML PREMIX 100 MG IV (10:40)
[2019-11-09] MEDS: omega-3 fatty acids 1,000 mg Capsule 1000 MG PO (10:40)
[2019-11-09] MEDS: pyridoxine 50 mg Tablet PO (10:40)
[2019-11-09 10:44] LABS: Glucose Point of Care 258 mg/dL (70-110)
--- NOTE | 2019-11-09 12:59 | P.PN_ITS ---
Subjective Subjective: Interval history: Patient had over 4 L of urine output yesterday. She feels much better her swelling and shortness of breath has improved. Medications: Reviewed: Yes Vitals/I&O/Wt Last Vital Signs Temp 97.9 F 11/09/19 11:33 Pulse 74 11/09/19 11:33 Resp 20 H 11/09/19 11:33 BP 136/63 11/09/19 11:33 Pulse Ox 98 11/09/19 11:33 11/08/19 11/09/19 11/09/19 22:59 06:59 14:59 Intake Total 720 / 1230 240 / 1470 510 / 510 Output Total 680 / 1770 1910 / 3680 1000 / 1000 Balance 40 / -540 -1670 / -2210 -490 / -490 Weight last 48 hrs Weight 277 lb 4.8 oz Physical Exam Narrative: EXAM NARRATIVE: GENERAL: obese lady sitting on bed in no acute distress HEENT: Extraocular movement intact. Pupils equal round reactive to light. No icterus. NECK: No JVD appreciated CARDIOVASCULAR SYSTEM: regular, Grade 3/6 harsh systolic murmur in aortic area, soft S2 RESPIRATORY SYSTEM: Chest clear to auscultation bilaterally. Occasional rales present EXTREMITIES: No cyanosis or clubbing. trace-1+ bilateral leg edema. INSURANCE LEGAL ASSISTANT: Patient is alert oriented ?3. No focal neurological deficits. Data : 11/09/19 05:06 11/09/19 05:06 Micro: Microbiology 11/07/19 04:45 Gram Stain - Final Sputum - Expectorated Sputum Sputum Culture - Final Methicillin Resis Staph Aureus Pseudomonas aeruginosa 11/06/19 18:45 Urine Culture - Preliminary Urine,Clean Catch Enterococcus species Bacterial Antigens - Final A&P Assessment and plan (1) Chest pain: Chest pain and shortness of breath likely in setting of decompensated CHF. Resolved -No ischemia on stress test today. Status: Acute Qualifiers: Chest pain type: unspecified Qualified Code(s): R07.9 - Chest pain, unspecified (2) Heart failure with preserved ejection fraction: Acute on chronic decompensated CHF -Likely in setting of underlying severe . -She diuresed well with IV Lasix and plan is to discharge her home later today with Lasix 40 mg p.o. twice daily. -Follow-up and of BMP in next 3 to 5 days. -Follow-up with Dr. Hargrove in heart care services in 1 to 2 weeks. Status: Acute Qualifiers: Heart failure chronicity: acute on chronic Qualified Code(s): I50.33 - Acute on chronic diastolic (congestive) heart failure (3) Aortic stenosis: Severe on recent echo. She is not a candidate of SAVR with underlying multiple co-morbidities. -She would need LOI/cardiac CT and referal for possible TAVR to [facility] [place]. This can be done as an outpatient. These findings and management options discussed in detail with the patient. All patient's questions were answered in detail. Status: Acute Qualifiers: Cardiac valve disease etiology: nonrheumatic Qualified Code(s): I35.0 - Nonrheumatic aortic (valve) stenosis (4) Insulin dependent type 2 diabetes mellitus: Status: Acute (5) Cirrhosis: Status: Acute (6) Anemia: Status: Acute Additional A&P Information Pancytopenia Hypokalemia : replaced Thank you for allowing me to participate in patient's care. Please feel free to call with questions or concerns. Attestations Medical Necessity Statement*: Stable to be discharged home from cardiac standpoint Coding Level of Care Code Acute Key Bed Installer for g Fwd Diagnoses Chest pain R07.9 Chest pain type: unspecified Heart failure with preserved ejection fraction I50.33 Heart failure chronicity: acute on chronic Aortic stenosis I35.0 Cardiac valve disease etiology: nonrheumatic Insulin dependent type 2 diabetes mellitus E11.9; Z79.4 Cirrhosis K74.60 Anemia D64.9
== END 2019-11-09 13:21 | disposition home health service (06) | DRG 291 ==
LOC: ER 21:15 → MEDSURG 21:17
PROVIDERS: Admitting Provider Family Medicine; Emergency Provider Emergency Medicine; Family Provider Internal Medicine; PCP Internal Medicine; Visit Provider Internal Medicine
DX: I50.33 Acute on chronic diastolic (congestive) heart failure (principal); J18.9 Pneumonia, unspecified organism; J96.01 Acute respiratory failure with hypoxia; J44.0 Chronic obstructive pulmonary disease with (acute) lower respiratory infection; J44.1 Chronic obstructive pulmonary disease with (acute) exacerbation; D61.818 Other pancytopenia; K76.0 Fatty (change of) liver, not elsewhere classified; K72.90 Hepatic failure, unspecified without coma; E11.42 Type 2 diabetes mellitus with diabetic polyneuropathy; Z79.4 Long term (current) use of insulin; E78.5 Hyperlipidemia, unspecified; G25.81 Restless legs syndrome; E03.9 Hypothyroidism, unspecified; Z99.81 Dependence on supplemental oxygen; Z87.891 Personal history of nicotine dependence; I35.0 Nonrheumatic aortic (valve) stenosis; Z79.82 Long term (current) use of aspirin; F03.90 Unspecified dementia, unspecified severity, without behavioral disturbance, psychotic disturbance, mood disturbance, and anxiety; E87.6 Hypokalemia; D63.8 Anemia in other chronic diseases classified elsewhere
CPT/HCPCS: 12345; 36415; 36416; 36430; 71045; 71275; 78452; 80053; 80061; 81001; 82140; 82728; 82962; 83036; 83540; 83550; 83690; 83735; 83880; 84100; 84145; 84484; 85025; 85045; 85610; 85651; 86140; 86403; 86850; 86900; 86920; 87040; 87070; 87077; 87086; 87186; 87205; 93005; 93017; 93306; 94640; 94660; 94664; 96372; 96374; 96375; 97110; 97116; 97161; 97165; 97530; 97535; 99283; A9500; J0280; J1200; J1720; J1815; J1940; J1956; J2785; J7030; P9016; Q9967

== ENCOUNTER → 2019-11-19 15:03 | Outpatient (BNVA) | payer MEDICARE, MEDICAID, SELFPAY | PROVIDERS: Family Provider Internal Medicine; PCP Internal Medicine; Referring Provider Nurse Practitioner; Visit Provider Nurse Practitioner | DX: G30.9 Alzheimer's disease, unspecified (principal); F02.80 Dementia in other diseases classified elsewhere, unspecified severity, without behavioral disturbance, psychotic disturbance, mood disturbance, and anxiety | CPT/HCPCS: 96116; 99204; 99999 ==

== ENCOUNTER 2019-11-28 10:52 | Outpatient (CLI) | payer MEDICARE, MEDICAID, SELFPAY ==
--- NOTE | 2019-11-28 11:00 | MR_ITS ---
WS: [id number] MRI HEAD WITHOUT CONTRAST TECHNIQUE: Sagittal T1, T2 axial, T2 axial FLAIR, axial and coronal T1 images, axial susceptibility w eighted imaging, axial diffusion weighted images, and coronal T2 images were obtained. CLINICAL INFORMATION: Cognitive Decline COMPARISON: CTA December 14, 2014 and MRI February 13, 2015 FINDINGS: No evidence of restricted diffusion to suggest acute ischemia. Ventricular system and basal cisterns are patent. Mild small vessel changes with mild/moderate parenchymal volume loss not significantly ch anged since 2014. Normal posterior fossa. Normal vascular flow voids at the skull base. No extra-axia l fluid collections. Mild mucosal thickening in the paranasal sinuses. Mastoid air cells are well aer ated. No hemosiderin on susceptibly weighted images. Normal optic chiasm and pituitary infundibulum. Mild s ymmetric atrophy involving the temporal lobes and hippocampal formations. Visualized upper cervical s pine appears normal. MR/MR head wo con* [id number] IMPRESSION: 1. No evidence of restricted diffusion to suggest acute ischemia. 2. Mild small vessel changes with mild/moderate parenchymal volume loss not si gnificantly changed since 2014. 3. Mild pansinusitis with prior bilateral maxillary antrostomies.. 4. Mild symmetric atrophy involving the temporal lobes and hippocampal formati ons. 5. No hemosiderin on the susceptibility weighted images.
== END 2019-11-28 10:53 | disposition home or self-care (01) ==
PROVIDERS: Family Provider Internal Medicine; PCP Internal Medicine; Visit Provider Nurse Practitioner
DX: G30.9 Alzheimer's disease, unspecified (principal); F02.80 Dementia in other diseases classified elsewhere, unspecified severity, without behavioral disturbance, psychotic disturbance, mood disturbance, and anxiety; J32.4 Chronic pansinusitis
CPT/HCPCS: 70551

== ENCOUNTER 2019-12-13 13:12 | Emergency (ER) | payer MEDICARE, MEDICAID, SELFPAY ==
[2019-12-13 13:15] VITALS: BP 112/44; PULSE 82; RESP 20; TEMP 36.9; O2SAT 97; BMI 38.3
--- NOTE | 2019-12-13 13:36 | ECG_ITS ---
Measurements Intervals [place] Rate: 73 P: 61 [place]: 166 QRS: 17 QRSD: 109 T: 120 QT: 410 QTc: [address] DEVIATION AND MODERATE T-WAVE ABNORMALITY, CONSIDER LATERAL ISCHEMIA [-0.1+ mV mV T WAVE IN I/aVL/V5/V6] Compared to ECG 11/06/2019 23:07:33 No significant changes Electronically Signed On 12-14-2019 18:12:09 CDT by Destiny Lundberg M.D. [email or web address]
--- NOTE | 2019-12-13 13:41 | ED_ITS ---
HPI - Recheck/Abnormal Lab/Rx General: Chief Complaint: Recheck/Abnormal Lab/Rx Stated Complaint: HYPERKALEMIA Time Seen by Provider: 12/13/19 13:36 Source: patient Mode of arrival: ambulatory Limitations: no limitations History of Present Illness: HPI narrative: Patient comes in today with complaints of low potassium. Patient was contacted by her primary care provider and was recommended to come to the emergency department for low potassium. It was reported to patient her potassium was 2.7. Patient denies any complaints or discomfort. Patient appears well. Review of Systems General: Reports: 10 or more systems reviewed and unremarkable except in HPI and below PFSH ED PFSH: Medical History (Updated 12/13/19 @ 14:22 by MITCH Mooney) Anemia Cirrhosis Dementia Diabetes mellitus, type II Hemorrhage from nose Valvular heart disease Surgical History H/O of nasal cauterization Family History Other Diabetes Social History Smoking and tobacco status: former smoker History of recent travel: No Physical Exam Const: COMMON NORMALS: no acute distress and patient oriented x3 GENERAL APPEARANCE: cooperative HENMT: COMMON NORMALS: normocephalic, TM's normal bilaterally and Normal external nose present HEAD & SCALP: normal to inspection and normocephalic NOSE: Normal external nose present TYMPANIC MEMBRANE: TM's normal bilaterally MOUTH: Normal oral and palatal mucosa present THROAT: posterior oropharynx normal Eye: GENERAL EYE: appearance normal, both eyes and all related structures Neck/C-Spine: COMMON NORMALS: full ROM Lymph: LYMPHATIC: no lymphadenopathy noted Chest: COMMONS NORMALS: normal inspection of the chest Resp: COMMON NORMALS: normal respiratory effort EFFORT & INSPECTION: Yes able to speak in complete sentences Cardio: COMMON NORMALS: regular rate and regular rhythm RATE: regular rate RHYTHM: regular rhythm GI: COMMON NORMALS: non-tender : COMMON NORMALS: Yes no CVA tenderness BLADDER/KIDNEY EXAM: Yes no CVA tenderness Back/Pelvis: COMMON NORMALS: no CVA tenderness and thoracic and lumbar spine normal to inspection Extremity: COMMON NORMALS: normal to inspection Neuro: COMMON NORMALS: patient oriented x3 and moves all extremities Psych: COMMON NORMALS: mental status grossly normal and cooperative Skin: COMMON NORMALS: no rashes or lesions noted GENERAL SKIN EXAM: no rashes or lesions noted Course Vital Signs: Vital signs: Vital Signs Temperature 98.4 F 12/13/19 13:15 Pulse Rate 82 12/13/19 13:15 Respiratory Rate 20 H 12/13/19 13:15 Blood Pressure 112/44 12/13/19 13:15 Pulse Oximetry 97 12/13/19 13:15 MDM - Recheck/Abnormal Lab/Rx MDM Narrative: Medical decision making narrative: Patient was sent to the emergency room for concerns of low potassium. Patient had a blood drawn yesterday and it was noted that her potassium came back 2.7. There is recommend the patient come to the ER for further treatment and evaluation. Patient denies any complaints. Respirations were even lungs are clear to auscultation. No edema was noted in the extremities. Differential diagnosis includes hypokalemia, anemia, renal insufficiency, adverse drug effect. Review of patient's medications she is on insulin, takes lactulose, and routinely takes furosemide without any potassium supplementation. Patient was given a dose of 60 mEq of potassium in the emergency room. Patient potassium was 2.6 in the ER. Patient was asymptomatic. EKG noted normal sinus rhythm with possibly some mild flattening of the T waves. Patient tolerated medication well. Patient was written a prescription for potassium chloride 20 mEq 4 times a day with meals. Patient states that her provider had sent a prescription to her pharmacy advised and she should get it tomorrow. 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 Patient reported understanding agreed to plan. Lab Data: Labs: Lab Results 12/13/19 12/13/19 Range/Units 13:53 13:53 WBC 3.4 L (4.0-10.0) 10^3/ uL RBC 3.61 L (4.1-5.3) 10^6/u L Hgb 8.9 L (11.5-15.3) g/dL Hct 29.6 L (37.0-47.0) % MCV 82.0 (81-99) fL MCH 24.7 L (28.0-34.0) pg MCHC 30.1 (30.0-36.0) g/dL RDW 18.1 H (12.1-15.1) % Plt Count 97 L (130-400) 10^3/c mm MPV 9.9 (7.4-10.4) fL Neut % (Auto) 66.5 % Lymph % (Auto) 13.6 % Trinity % (Auto) 13.1 % Eos % (Auto) 5.3 % Baso % (Auto) 0.6 % Neut # (Auto) 2.2 (1.8-7.7) 10^3/u L Lymph # (Auto) 0.5 L (0.8-4.8) 10^3/u L Trinity # (Auto) 0.4 (0.2-0.9) 10^3/u L Eos # (Auto) 0.2 (0.0-0.8) 10^3/u L Baso # (Auto) 0.0 (0.0-0.1) 10^3/u L Nucleated RBC % (a uto) 0 % Nucleated RBCs # 0.0 /100WBC Sodium 139 (136-145) mmol/L Potassium 2.6 L* (3.5-5.1) mmol/L Chloride 95 L (98-107) mmol/L Carbon Dioxide 34 H (22-29) mmol/L Anion Gap 12.6 (5-19) BUN 12 (8-23) mg/dL Creatinine 0.9 (0.5-0.9) mg/dL Glucose 108 (65-115) mg/dL Calculated Osmolal ity 285 (285-295) mOsm/k g Calcium 9.4 (8.5-10.5) mg/dL Total Bilirubin 1.4 H (0.15-1.2) mg/dL AST 44 H (0-32) U/L ALT 21 (0-33) U/L Alkaline Phosphata se 97 (35-105) IU/L Total Protein 7.5 (6.6-8.7) g/dL Albumin 3.8 (3.5-5.2) g/dL Globulin 3.7 (1.3-4.6) g/dL EKG Data^: EKG 1: Attestation: I personally reviewed and interpreted this EKG as follows: (1351, sinus rhythm, rate 73 bpm, no ST elevation, no ectopy) Discharge Plan Discharge Patient Disposition: Home, Self-Care Clinical Impression: Hypokalemia Adverse drug effect Qualifiers: Encounter type: initial encounter Qualified Code(s): T50.905A - Adverse effect of unspecified drugs, medicaments and biological substances, initial encounter Condition: Stable Prescriptions: New potassium chloride 20 mEq tablet extended release 20 meq PO QID Qty: 60 RF: 0 No Action Lantus U-100 Insulin 100 unit/mL Solution See Rx Instructions .ROUTE .COMPLEX RF: 0 simvastatin 10 mg Tablet 10 mg PO DAILY RF: 0 gabapentin 800 mg Tablet 800 mg PO TID RF: 0 ropinirole 0.25 mg Tablet 0.25 mg PO TID RF: 0 lactulose [Kristalose] 10 gram Packet See Rx Instructions .ROUTE .COMPLEX RF: 0 levothyroxine 125 mcg Tablet 125 mcg PO DAILY RF: 0 pyridoxine (vitamin B6) [Vitamin B-6] 100 mg Tablet 50 mg PO DAILY RF: 0 insulin lispro [Humalog U-100 Insulin] 100 unit/mL Solution See Rx Instructions .ROUTE .COMPLEX RF: 0 Multiple Vitamin, Womens Tablet See Rx Instructions .ROUTE .COMPLEX RF: 0 Restasis 0.05 % Dropperette 0.05 % ophthalmic (eye) BID RF: 0 memantine 10 mg Tablet 10 mg PO BID RF: 0 metformin 1,000 mg Tablet Extended Release 24hr 1,000 mg PO DAILY RF: 0 cholecalciferol (vitamin D3) [Vitamin D3] 25 mcg (1,000 unit) Tablet 25 mcg PO DAILY RF: 0 omega 7-emc-aiy-fish oil [Fish Oil] 300-1,000 mg Capsule 1 cap PO TID RF: 0 Xifaxan 550 mg Tablet 550 mg PO BID RF: 0 rivastigmine 13.3 mg/24 hour Patch 24 Hour 1 patch TRANSDERMAL DAILY RF: 0 Probiotic Complex 25 billion cell -100 mg Capsule See Rx Instructions .ROUTE .COMPLEX RF: 0 Trulicity 1.5 mg/0.5 mL Pen Injector See Rx Instructions .ROUTE .COMPLEX RF: 0 duloxetine 30 mg Capsule, Delayed Rel Sprinkle 30 mg PO BID RF: 0 pantoprazole 40 mg Tablet,Delayed Release (Dr/Ec) 40 mg PO DAILY Qty: 30 RF: 0 Lasix 40 mg tablet 40 mg PO BID Qty: 60 RF: 0 Discharge Orders: Discharge Order (Routine); Ordered 12/13/19 Ordered By: El Casas Referrals: Jolie Peck [Primary Care Provider] - Discharge Diet: Usual diet Discharge Activity: Increase activity as tolerated Patient Instructions: Hypokalemia (ED) Activity Restrictions/Additional Instructions: Take potassium tablets as directed. Continue with routine medications as ordered. Follow-up with primary care on Tuesday for repeat labs to recheck potassium level. Return to the ER for chest pain or any new concerns. 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
[2019-12-13 14:04] LABS: Basophils % 0.6 %; Eosinophils # 0.2 10^3/uL (0.0-0.8); Eosinophils % 5.3 %; Hematocrit 29.6 % (37.0-47.0); Hemoglobin 8.9 g/dL (11.5-15.3); Lymphocytes # 0.5 10^3/uL (0.8-4.8); Lymphocytes % 13.6 %; Mean Corpuscular HGB Conc 30.1 g/dL (30.0-36.0); Mean Corpuscular Hemoglobin 24.7 pg (28.0-34.0); Mean Platelet Volume 9.9 fL (7.4-10.4); Monocytes # 0.4 10^3/uL (0.2-0.9); Monocytes % 13.1 %; Neutrophils # 2.2 10^3/uL (1.8-7.7); Neutrophils % 66.5 %; Nucleated Red Blood Cells % 0 %; Platelet Count 97 10^3/cmm (130-400); Red Blood Count 3.61 10^6/uL (4.1-5.3); Red Cell Distribution Width 18.1 % (12.1-15.1); White Blood Count 3.4 10^3/uL (4.0-10.0)
[2019-12-13 14:12] LABS: Alanine Aminotransferase 21 U/L (0-33); Albumin Level 3.8 g/dL (3.5-5.2); Alkaline Phosphatase 97 IU/L (35-105); Anion Gap 12.6 (5-19); Aspartate Amino Transferase 44 U/L (0-32); Blood Urea Nitrogen 12 mg/dL (8-23); Calcium 9.4 mg/dL (8.5-10.5); Carbon Dioxide 34 mmol/L (22-29); Chloride 95 mmol/L (98-107); Globulin 3.7 g/dL (1.3-4.6); Glucose 108 mg/dL (65-115); Osmolality Calculated 285 mOsm/kg (285-295); Sodium 139 mmol/L (136-145); Total Bilirubin 1.4 mg/dL (0.15-1.2); Total Protein 7.5 g/dL (6.6-8.7)
[2019-12-13 14:18] LABS: Potassium 2.6 mmol/L (3.5-5.1)
[2019-12-13 14:50] VITALS: BP 178/63; PULSE 77; O2SAT 94
== END 2019-12-13 14:50 | disposition home or self-care (01) ==
LOC: ER 14:41
PROVIDERS: Emergency Provider Nurse Practitioner Family; Family Provider Internal Medicine; PCP Internal Medicine
DX: E87.6 Hypokalemia (principal); T50.905A Adverse effect of unspecified drugs, medicaments and biological substances, initial encounter; Z79.4 Long term (current) use of insulin; F03.90 Unspecified dementia, unspecified severity, without behavioral disturbance, psychotic disturbance, mood disturbance, and anxiety; E11.9 Type 2 diabetes mellitus without complications; Z87.891 Personal history of nicotine dependence
CPT/HCPCS: 12345; 36415; 80053; 85025; 93005; 99283

== ENCOUNTER → 2020-06-23 13:02 | Outpatient (BNVA) | payer MEDICARE, MEDICAID, SELFPAY | PROVIDERS: Family Provider Internal Medicine; PCP Internal Medicine; Visit Provider Nurse Practitioner Family | DX: Z20.828 Contact with and (suspected) exposure to other viral communicable diseases (principal); J06.9 Acute upper respiratory infection, unspecified | CPT/HCPCS: 87635 ==

== ENCOUNTER 2020-08-29 14:28 | Outpatient (CLI) | payer MEDICARE, MEDICAID, SELFPAY ==
[2020-08-29 15:25] LABS: Anion Gap 12.7 (5-19); Blood Urea Nitrogen 15 mg/dL (8-23); Calcium 9.4 mg/dL (8.5-10.5); Carbon Dioxide 27 mmol/L (22-29); Chloride 101 mmol/L (98-107); Glucose 149 mg/dL (65-115); Osmolality Calculated 288 mOsm/kg (285-295); Potassium 3.7 mmol/L (3.5-5.1); Sodium 137 mmol/L (136-145)
== END 2020-08-29 14:29 | disposition home or self-care (01) ==
LOC: LAB 14:32
PROVIDERS: PCP Internal Medicine; Visit Provider Internal Medicine
DX: I25.10 Atherosclerotic heart disease of native coronary artery without angina pectoris (principal); K72.90 Hepatic failure, unspecified without coma
CPT/HCPCS: 80048

== ENCOUNTER → 2021-05-22 12:59 | Outpatient (BNVA) | payer MEDICARE, MEDICAID, SELFPAY | PROVIDERS: PCP Internal Medicine; Visit Provider Nurse Practitioner | DX: G31.84 Mild cognitive impairment of uncertain or unknown etiology (principal); K74.60 Unspecified cirrhosis of liver; E72.20 Disorder of urea cycle metabolism, unspecified | CPT/HCPCS: 99213; 99214 ==

== ENCOUNTER → 2023-03-17 14:08 | Outpatient (BNVA) | payer MEDICARE, MEDICAID, SELFPAY | PROVIDERS: Visit Provider Thoracic Surgery (Cardiothoracic Vascular Surgery) | DX: I87.2 Venous insufficiency (chronic) (peripheral) (principal); Z87.891 Personal history of nicotine dependence | CPT/HCPCS: 99203 ==

== ENCOUNTER → 2023-05-11 11:03 | Outpatient (BNVA) | payer MEDICARE, MEDICAID, SELFPAY | PROVIDERS: Referring Provider Internal Medicine; Visit Provider Psychiatry & Neurology Neurology | DX: I38 Endocarditis, valve unspecified (principal); R41.3 Other amnesia; G30.9 Alzheimer's disease, unspecified; F02.80 Dementia in other diseases classified elsewhere, unspecified severity, without behavioral disturbance, psychotic disturbance, mood disturbance, and anxiety | CPT/HCPCS: 0346U; 36415; 80053; 82306; 82542; 82607; 82746; 83735; 83921; 84439; 84443; 84481; 85025; 86592; 86780; 99203 ==

== ENCOUNTER 2023-06-14 09:15 | Outpatient (CLI) | payer MEDICARE, MEDICAID, SELFPAY ==
--- NOTE | 2023-06-14 09:26 | USCV_ITS ---
Estheladaniel Ascencion Age: 73 Gender: F : 1950 Exam Date: 06/14/2023 09:36 Ordering Phys: El Carmona MD (Andy) ([email or web address]) Technologist: Exam Location: [facility] [place] Indication: HISTORY: PROCEDURES: Bilateral duplex Venous Insufficiency study of the Deep and Superficial systems was carried out according to normal protocol with the patient in supine positon for deep system and dependent position for the superficial system. FINDINGS: All deep veins demonstrated compressibility without evidence of intraluminal thrombus or increased echogenicity. Spectral analysis of Doppler signals demonstrates normal response to compression maneuvers indicating patency without obstruction. Reflux determinations were made with the patient in the dependent position, the weight being on the contralateral leg. Vein measurements and reflux times are listed below were applicable. There is significant reflux in the lt leg below the knee. The reflux time at the below-knee segment of the greater saphenous vein on the left side was 3.52 seconds. The venous segment was at a depth of 0.77 cm from the surface and was measuring 0.3 cm in diameter CONCLUSIONS 1. No evidence of DVT in the above-mentioned identifiable veins. 2. Significant venous reflux of greater than 500 ms was noted in the below-knee segment of the greater saphenous vein on the left side. But this venous segment was found to be very superficial, less than 1 cm from the surface. 3. No other reflexes were noted Dr oJnas Adame MD [facility] (Electronically Signed) Final Date: 17 June 2023 10:17 S
--- NOTE | 2023-06-14 11:00 | MR_ITS ---
WS: [id number] MRI HEAD WITHOUT CONTRAST TECHNIQUE: Sagittal T1, T2 axial, T2 axial FLAIR, axial and coronal T1 images, axial susceptibility w eighted imaging, axial diffusion weighted images, and coronal T2 images were obtained. CLINICAL INFORMATION: F03.90 - Unspecified dementia, unspecified severity, with... COMPARISON: MRI 11/28/2019 FINDINGS: No evidence of restricted diffusion to suggest acute ischemia. Minimal small vessel changes with mode rate parenchymal volume loss. Parenchymal volume loss slightly worse in the parietal lobes bilaterall y and appears slightly progressed. Mild to moderate symmetric atrophy temporal lobes and hippocampal formations appears slightly progressed compared to previous. No hemosiderin on susceptibly weighted imaging. Normal posterior fossa. Normal vascular flow voids at the skull base. No extra-axial fluid collections. Mild mucosal thickening in the paranasal sinuses. Mucosal thickening LEFT mastoid tip. Normal posterior nasopharynx. Normal optic chiasm and pituitary infundibulum. Prior postoperative changes bilateral maxillary antrostomies. IMPRESSION: 1. No evidence of restricted diffusion to suggest acute ischemia. 2. Mild small vessel changes with moderate parenchymal volume loss. Parietal parenchymal volume loss appears progressed 3. Parietal parenchymal volume loss and temporal lobe atrophy can be seen with Alzheimer's dementia 4. Mild to moderate symmetric atrophy temporal lobes hippocampal formations appear slightly progress ed compared to thousand 20. 5. No hemosiderin on the susceptibly weighted images.
== END 2023-06-14 09:16 | disposition home or self-care (01) ==
LOC: RAD 09:16
PROVIDERS: PCP Internal Medicine; Visit Provider Psychiatry & Neurology Neurology
DX: F03.90 Unspecified dementia, unspecified severity, without behavioral disturbance, psychotic disturbance, mood disturbance, and anxiety (principal); M79.604 Pain in right leg
CPT/HCPCS: 70551; 93970